=== PATIENT | male | born 1935 | race Caucasian/White ===

== ENCOUNTER 2017-03-27 07:05 | Inpatient (IN) | payer MEDICARE, BC ==
[2017-03-27] MEDS ORDERED: Acetaminophen TAB* 325 MG PO PRN (11:45)
[2017-03-27] MEDS ORDERED: Magnesium Hydroxide LIQ* 30 ML UDC PO PRN (11:47)
[2017-03-27] MEDS ORDERED: Senna TAB PO PRN (11:47)
--- NOTE | 2017-03-27 12:34 | PMRUTEAM ---
PMRU: Goals Current Status: Physical Therapy: Current Status Bed Mobility Assistance Supervision Transfer Moblility Assistance Contact guard Ambulation Assistance Contact guard Ambulation Assistive Devices Rolling Walker Number of Stairs 3 Occupational Therapy: Current Status Upper Body Dressing Contact Guard Assist,Min Assist Lower Body Dressing Min Assist Bathing Contact Guard Assist Toileting Contact Guard Assist Toilet Transfer Contact Guard Assist Eating Independent SOCIAL WORK: lives with significant other Maty in a one story house with 2 MIQUEL Goals: Occupational Therapy: Initial Goals Goals to be Completed in (Days 4-7 ) Upper Body Bathing Routine Independent Lower Body Bathing Routine Modified Independent with Upper Body Dressing Routine Modified Independent with Upper Body Dressing Assistive hemidressing prn Devices Lower Body Dressing Routine Modified Independent with Toilet Hygeine and Clothing Modified Independent with Management Routine Toilet Transfer Routine Modified Independent with Tub Transfer Routine Modified Independent with Functional Transfers for ADL Modified Independent with Grooming Routine Independent Feeding Routine Independent PHYSICAL THERAPY: Independent transfers, independent ambulation 500 feet with a straight cane, independent 1 flight of stairs Care Plan: Care Plan ADL's - Improve/Maintain Start: 03/27/17 11:41 Freq: DAILY Status: Active Target: Activity Type Activity Date Activity User E-Sign Co-Sign Detail Recorded Client Recorded Date Recorded By Document 03/27/17 11:41 [id number] 03/27/17 11:42 [id number] 03/27/17 11:41 PMRU Outcome: ADL's/ADL Transfers Orders/Interventions Occupational Therapy Evaluation & Treatment Communication Tool in Patient Room Device Yes Address Deficits Secondary To: CVA Patient to receive OT 5x/wk for 60-120 Therex min/day Self Care Management Group Therapy Neuromuscular ReEducation UE/LE ADL's with Assist Yes: Imelda ADL Transfers with Assist Yes: Imelda Toileting: Transfers,Clothing Management Yes: Imelda ,Hygeine w/Assist Light Kitchen/Laundry w/Assist No Progression Toward Outcome/Goals Progressing Outcome/Goals Met Pt participated well in OT evaluation, decreased coordination LUE/LLE requiring CGA- Leif for most ADLs, increased time to button shirt. Pt motivated to improve function to return home with supportive girlfriend. Coping/Psych-Improve/Maintain Start: 03/27/17 11:30 Freq: DAILY Status: Active Target: Activity Type Activity Date Activity User E-Sign Co-Sign Detail Recorded Client Recorded Date Recorded By Document 03/27/17 11:31 [id number] 03/27/17 11:43 [id number] 03/27/17 11:31 PMRU Outcome: Coping/Psychosocial Coping Outcome/Goals Verbalization of Acceptance of Rehab Admit Willingness to Participate in Treatment Plan and Basic Needs Psychosocial Outcome/Goals Cooperate/ Participate in Plan Progression Toward Outcome/Goals - Progressing Coping Progression Toward Outcome/Goals - Progressing Psychosocial DVT Prophylaxis- Improve/Maintain Start: 03/27/17 11:30 Freq: DAILY Status: Active Target: Activity Type Activity Date Activity User E-Sign Co-Sign Detail Recorded Client Recorded Date Recorded By Document 03/27/17 11:31 [id number] 03/27/17 11:43 [id number] 03/27/17 11:31 PMRU Outcome: DVT Prophylaxis Outcome/Goals Remains Free of DVT Complies with DVT Prophylaxis /Treatment Demonstrates Knowledge of DVT Prevention/ Treatment TEDS Stockings on Every AM, Off at HS Progression Toward Outcome/Goals Progressing Education-Improve/Maintain Start: 03/27/17 11:30 Freq: DAILY Status: Active Target: Activity Type Activity Date Activity User E-Sign Co-Sign Detail Recorded Client Recorded Date Recorded By Document 03/27/17 11:31 [id number] 03/27/17 11:43 [id number] 03/27/17 11:31 PMRU Outcome: Education Outcome/Goals Encourage Questions Progression Toward Outcome/Goals Progressing /GI-Improve/Maintain Start: 03/27/17 11:30 Freq: DAILY Status: Active Target: Activity Type Activity Date Activity User E-Sign Co-Sign Detail Recorded Client Recorded Date Recorded By Document 03/27/17 11:31 [id number] 03/27/17 11:43 [id number] 03/27/17 11:31 PMRU Outcome: Genitourinary/ Gastrointestinal Genitourinary- Outcome/Goals Remain Free of Hospital- Acquired UTI Gastrointestinal-Outcome/Goals Maintain/ Achieve Bowel Regularity in Accordance with Pt's Baseline Remain Free of Emesis Prevent Constipation Bowel Regularity at Home Laxatives as Ordered Progression Toward Outcome/Goals - Progressing Progression Toward Outcome/Goals - GI Progressing Medication Administration Start: 03/27/17 11:30 Freq: DAILY Status: Active Target: Activity Type Activity Date Activity User E-Sign Co-Sign Detail Recorded Client Recorded Date Recorded By Document 03/27/17 11:31 [id number] 03/27/17 11:43 [id number] 03/27/17 11:31 PMRU Outcome: Medication Administration Assess Patient Knowledge/Teach Med Yes Education for all Meds Outcome/Goals Patient Independent with Medication Administration at Home Demonstrates Understanding Progression Towards Outcome/Goals Progressing Is Patient Going Home on Lovenox? No Neurological- Improve/Maintain Start: 03/27/17 11:30 Freq: DAILY Status: Active Target: Activity Type Activity Date Activity User E-Sign Co-Sign Detail Recorded Client Recorded Date Recorded By Document 03/27/17 11:31 [id number] 03/27/17 11:43 [id number] 03/27/17 11:31 PMRU Outcome: Neurological Weakness/Aphasia Weakness Left Side Outcome/Goals Maintain/ Achieve Baseline Neurological Status Improve Neurological Status Demonstrate Knowledge of Prevention/Tx of Neuro Disorders/ Complication Maintain/ Improve Strength/ROM Progression Toward Outcome/Goals Progressing Pain/Comfort- Improve/Maintain Start: 03/27/17 11:30 Freq: DAILY Status: Active Target: Activity Type Activity Date Activity User E-Sign Co-Sign Detail Recorded Client Recorded Date Recorded By Document 03/27/17 11:31 [id number] 03/27/17 11:43 [id number] 03/27/17 11:31 PMRU Outcome: Pain/Comfort Outcome/Goals Maintain Comfort Level Allowing Patient to Fully Participate in Rehab Progression Toward Outcome/Goals Progressing Safety- Improve/Maintain Start: 03/27/17 11:30 Freq: DAILY Status: Active Target: Activity Type Activity Date Activity User E-Sign Co-Sign Detail Recorded Client Recorded Date Recorded By Document 03/27/17 11:31 [id number] 03/27/17 11:43 [id number] 03/27/17 11:31 PMRU Outcome: Safety Outcome/Goals Remain Free of Injury or Harm Cooperates with Safety Measures for Least Restrictive Environment Prevent Falls/ Injury Progression Toward Outcome/Goals Progressing Medicine Note: Length of Stay: 4 days Anticipated Discharge Destination: Tentative Discharge Date: 03/31/17 Discharged to: Home
[2017-03-27] MEDS: Atorvastatin* 80 MG TAB PO SCH (17:14)
[2017-03-27] MEDS ORDERED: Terazosin CAP* 5 MG PO SCH (18:00)
--- NOTE | 2017-03-27 19:41 | HP ---
ADMISSION HISTORY AND PHYSICAL: DATE OF ADMISSION: 03/27/17 REASON FOR ADMISSION: Stroke with left-sided weakness. HISTORY OF PRESENT ILLNESS: Patricio Ferris is a 81-year-old male with a medical history significant for benign prostatic hypertrophy. 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 The patient on 03/21/17 was watching the 7th game of the [employer] when his television went out. He said he got quite angry because his television was out, but then went down to the local [employer] and watched the [employer] there. He had a few beers while he was watching the [employer]. He returned to his home after the game was over and went to bed. At 4 a.m. on 07/07, he woke up, unable to move his left arm. The patient decided to go back to bed and see if it would get better on its own. The patient was not sure if he injured his arm moving a piano. The patient woke up 4 hours later and his arm was still weak. His significant other convinced him to go to the emergency room for evaluation. He was evaluated in the ER and had a CAT scan of his brain. As he had long passed the window for TPA that was not an option. The CAT scan showed no acute abnormality. He had a CT angiogram that again showed no blockage in the carotids and no evidence for hemodynamically significant carotid stenosis. The patient was admitted for a probable stroke. An MRI of the brain and an MRI of the cervical spine were ordered. He had a consultation with Dr. Watt. Dr. Watt felt in all likelihood that the patient had had a stroke, but to rule out any cervical cord lesion an MRI of the cervical spine was obtained. MRI of the brain showed an area of restricted diffusion in the right precentral gyrus consistent with a subacute non-hemorrhagic infarct. The patient was kept on a full-strength aspirin a day. Lipitor was added to his medication regimen. The patient had an episode of hematuria while on the acute service, so he was not put on anything for DVT prophylaxis. The patient is felt to have physical therapy and occupational therapy needs. He is now being admitted for inpatient rehab so that he might return to independent living. PAST MEDICAL HISTORY: Significant for: 1. Benign prostatic hypertrophy as previously noted. 2. He has a history of osteoarthritis as well. 3. Cataracts. 4. Vitamin B12 deficiency. 5. He has had bilateral inguinal hernia repairs. CURRENT MEDICATIONS: Include: 1. Proscar. 2. He is on Hytrin as well. 3. He takes Lipitor. ALLERGIES: No known drug allergies. SOCIAL HISTORY: He is a nonsmoker, nondrinker. He lives with his significant other in a 2-story house, but he only uses 1 level. There are multiple steps to enter through the front and in the back there is only 1 step. REVIEW OF SYSTEMS: The patient reports no current shortness of breath or chest pain. PHYSICAL EXAMINATION VITAL SIGNS: Temperature is 97.8, blood pressure is 137/69, pulse is 86, and respirations are 16. HEENT: His extraocular movements are intact. Tongue is midline. NECK: Supple with no lymphadenopathy. LUNGS: Lungs sound clear to auscultation bilaterally. HEART: Heart sounds are regular. S1 and S2 are audible. ABDOMEN: Soft and nontender. EXTREMITIES: Peripheral pulses are intact. No edema is noted. He may have had slightly increased tone in his left upper extremity. NEUROLOGIC: The patient is awake, alert. His speech is clear. Muscle strength is about 4/5 in the left upper extremity. Hand belt turner is about 4/5. Left lower extremity is 4+/5, right side is 5/5. FUNCTIONAL EXAM: The patient transfers with contact guard. ASSESSMENT: Cerebrovascular accident with left hemiparesis. PLAN: Integrate him into a comprehensive and therapeutic rehab program with the following goals: 1. Physical Therapy will see the patient. They are going to work on functional transfer training, ambulation training with a walker. 2. Occupational Therapy will see the patient, work on his activities of daily living including toileting and toilet transfers. 3. Consider heparin for DVT prophylaxis. I will investigate if he got subcu heparin before he developed hematuria. We will also use VIRGIL stockings. 4. SSRIs as indicated. 5. Continue Proscar and Hytrin for benign prostatic hypertrophy. 6. Advance directives: The patient is a full code. 7. Family training as appropriate. 8. patient services manager will be closely involved to make sure that any services and equipment that the patient requires are in place prior to discharge. 9. Home with appropriate services. ESTIMATED LENGTH OF STAY: 5 to 7 days. [id number]/[facility] #: [id number] ASHLEY
[2017-03-27] MEDS: Heparin VIAL(*) 5000 UNITS/ML VIAL (FIVE THOUSAND) SUBCUT SCH (20:13)
[2017-03-27] MEDS: Terazosin CAP* 5 MG PO SCH (20:13)
[2017-03-27] MEDS: Docusate CAP* 100 MG PO SCH (21:27)
[2017-03-28 07:48] LABS: Hematocrit 38 % (42-52); Hemoglobin 12.8 g/dl (14.0-18.0); Mean Corpuscular HGB Conc 34 g/dl (31-36); Mean Corpuscular Hemoglobin 32 pg (27-31); Mean Corpuscular Volume 92 fL (80-94); Mean Platelet Volume 9 um3 (7.4-10.4); Red Blood Count 4.06 10^6/ul (4.0-5.4); Red Cell Distribution Width 13 % (10.5-15); White Blood Count 6.9 10^3/ul (3.5-10.8)
[2017-03-28 08:03] LABS: Albumin 3.4 g/dL (3.2-5.2); BUN/Creatinine Ratio 21.3 (8-20); Calcium 8.9 mg/dL (8.6-10.3); EGFR Non-African American 82.5 (>60); Globulin 2.6 g/dL (2-4); Potassium 4.2 mmol/L (3.5-5.0); Total Bilirubin 1.3 mg/dL (0.2-1.0)
[2017-03-28] MEDS: Aspirin EC TAB* 325 MG PO SCH (08:11)
[2017-03-28] MEDS: Docusate CAP* 100 MG PO SCH ×2 (08:11→22:15)
[2017-03-28] MEDS: Finasteride TAB* 5 MG PO SCH (08:11)
[2017-03-28] MEDS: Heparin VIAL(*) 5000 UNITS/ML VIAL (FIVE THOUSAND) SUBCUT SCH ×2 (08:12→20:02)
[2017-03-28] MEDS: Atorvastatin* 80 MG TAB PO SCH (17:02)
[2017-03-28] MEDS: Terazosin CAP* 5 MG PO SCH (20:01)
--- NOTE | 2017-03-28 20:15 | PN ---
Progress Note - Progress Note Date of Service: 03/28/17 Note: Salvador was visited. He is improving rapidly and did well with both therapies today. He would like to leave but knows he wants to continue to improve. I met with Salvador and Jie, his SO, and they agreed that Salvador should go home Sunday. Salvador feels his left arm is not as strong as it was yesterday. Current Medications Acetaminophen (Tylenol Tab*) 650 mg PO Q6H PRN PRN Reason: FEVER/PAIN Last Admin: 03/28/17 08:11 Dose: 650 mg Aspirin (Ecotrin Ec Tab*) 325 mg PO DAILY [facility] Last Admin: 03/28/17 08:11 Dose: 325 mg Atorvastatin Calcium (Lipitor*) 80 mg PO 1700 [facility] Last Admin: 03/28/17 17:02 Dose: 80 mg Docusate Sodium (Colace Cap*) 100 mg PO BID [facility] Last Admin: 03/28/17 08:11 Dose: 100 mg Finasteride (Proscar Tab*) 5 mg PO DAILY [facility] Last Admin: 03/28/17 08:11 Dose: 5 mg Heparin Sodium (Porcine) (Heparin Vial(*)) 5,000 units SUBCUT Q12HR [facility] Last Admin: 03/28/17 20:02 Dose: 5,000 units Magnesium Hydroxide (Milk Of Magnesia Liq*) 30 ml PO Q6H PRN PRN Reason: CONSTIPATION Senna (Senokot Tab*) 2 tab PO BEDTIME PRN PRN Reason: CONSTIPATION Terazosin HCl (Hytrin Cap*) 10 mg PO 1999 [facility] Last Admin: 03/28/17 20:01 Dose: 10 mg Laboratory Results - last 24 hr 03/28/17 03/28/17 07:33 07:33 WBC 6.9 RBC 4.06 Hgb 12.8 L Hct 38 L MCV 92 MCH 32 H MCHC 34 RDW 13 Plt Count 161 MPV 9 Neut % (Auto) 66.2 Lymph % (Auto) 16.9 L [place] % (Auto) 11.8 H Eos % (Auto) 4.1 Baso % (Auto) 1.0 Absolute Neuts (auto) 4.6 Absolute Lymphs (auto) 1.2 Absolute Monos (auto) 0.8 Absolute Eos (auto) 0.3 Absolute Basos (auto) 0.1 Absolute Nucleated RBC 0 Nucleated RBC % 0.1 Sodium 135 Potassium 4.2 Chloride 107 Carbon Dioxide 25 Anion Gap 3 BUN 19 Creatinine 0.89 Est GFR ( Amer) 106.0 Est GFR (Non-Af Amer) 82.5 BUN/Creatinine Ratio 21.3 H Glucose 106 H Calcium 8.9 Total Bilirubin 1.30 H AST 15 ALT 14 Alkaline Phosphatase 103 Total Protein 6.0 L Albumin 3.4 Globulin 2.6 Albumin/Globulin Ratio 1.3 Vital Signs Temp Pulse Resp BP Pulse Ox 99.5 F 82 18 124/70 92 03/28/17 16:31 03/28/17 16:31 03/28/17 16:31 03/28/17 16:31 03/28/17 16:44 EXAM: HEENT: EOMI, no facial asymmetry LUNGS: CTA b/l HEART: Reg rhythm ABDOMEN: Soft NEUROLOGIC: Left hand 4/5, left arm 4-4+/5 ASSESSMENT/PLAN: 1. CVA with left hemiparesis: PT/OT. ASA/Lipitor 2. BPH: Hytrin/Proscar 3. DVT Prophylaxis: Heparin S/Q 4. Advanced Directives: Full code 5. Disposition: Home with Jie 03/30
[2017-03-29] MEDS: Docusate CAP* 100 MG PO SCH ×2 (08:25→21:23)
[2017-03-29] MEDS: Finasteride TAB* 5 MG PO SCH (08:26)
[2017-03-29] MEDS: Aspirin EC TAB* 325 MG PO SCH (08:26)
[2017-03-29] MEDS: Heparin VIAL(*) 5000 UNITS/ML VIAL (FIVE THOUSAND) SUBCUT SCH ×2 (08:27→21:23)
[2017-03-29] MEDS: Atorvastatin* 80 MG TAB PO SCH (17:23)
--- NOTE | 2017-03-29 17:47 | PN ---
Progress Note - Progress Note Date of Service: 03/29/17 Note: Salvador visited. Therapy notes read and reviewed. He is safe for discharge tomorrow. He feels he can manage at home. Otherwise doing okay. Current Medications Acetaminophen (Tylenol Tab*) 650 mg PO Q6H PRN PRN Reason: FEVER/PAIN Last Admin: 03/28/17 08:11 Dose: 650 mg Aspirin (Ecotrin Ec Tab*) 325 mg PO DAILY [facility] Last Admin: 03/29/17 08:26 Dose: 325 mg Atorvastatin Calcium (Lipitor*) 80 mg PO 1700 [facility] Last Admin: 03/29/17 17:23 Dose: 80 mg Docusate Sodium (Colace Cap*) 100 mg PO BID [facility] Last Admin: 03/29/17 08:25 Dose: 100 mg Finasteride (Proscar Tab*) 5 mg PO DAILY [facility] Last Admin: 03/29/17 08:26 Dose: 5 mg Heparin Sodium (Porcine) (Heparin Vial(*)) 5,000 units SUBCUT Q12HR [facility] Last Admin: 03/29/17 08:27 Dose: 5,000 units Magnesium Hydroxide (Milk Of Magntrent Liq*) 30 ml PO Q6H PRN PRN Reason: CONSTIPATION Senna (Senokot Tab*) 2 tab PO BEDTIME PRN PRN Reason: CONSTIPATION Terazosin HCl (Hytrin Cap*) 10 mg PO 1999 [facility] Last Admin: 03/28/17 20:01 Dose: 10 mg Vital Signs Temp Pulse Resp BP Pulse Ox 99.0 F 84 18 134/73 94 03/29/17 15:51 03/29/17 15:51 03/29/17 16:18 03/29/17 15:51 03/29/17 16:18 EXAM: HEENT: EOMI, no facial asymmetry LUNGS: CTA b/l HEART: Reg rhythm ABDOMEN: Soft NEUROLOGIC: Left hand 4/5, left arm 4-4+/5 ASSESSMENT/PLAN: 1. CVA with left hemiparesis: PT/OT. ASA/Lipitor 2. BPH: Hytrin/Proscar 3. DVT Prophylaxis: Heparin S/Q 4. Advanced Directives: Full code 5. Disposition: Home 03/30
[2017-03-29] MEDS: Terazosin CAP* 5 MG PO SCH (21:23)
[2017-03-30 05:36] VITALS: BP 125/56
[2017-03-30] MEDS: Finasteride TAB* 5 MG PO SCH (08:46)
[2017-03-30] MEDS: Docusate CAP* 100 MG PO SCH (08:46)
[2017-03-30] MEDS: Aspirin EC TAB* 325 MG PO SCH (08:46)
[2017-03-30] MEDS: Heparin VIAL(*) 5000 UNITS/ML VIAL (FIVE THOUSAND) SUBCUT SCH (08:47)
--- NOTE | 2017-03-30 09:21 | PN ---
Progress Note - Progress Note Date of Service: 03/30/17 Note: Discharge note Notes reviewed and patient visited with . He wants copies of his labs, especially cholesterol. Feels ready to go home. No new symptoms. Acetaminophen (Tylenol Tab*) 650 mg PO Q6H PRN PRN Reason: FEVER/PAIN Last Admin: 03/28/17 08:11 Dose: 650 mg Aspirin (Ecotrin Ec Tab*) 325 mg PO DAILY [facility] Last Admin: 03/30/17 08:46 Dose: 325 mg Atorvastatin Calcium (Lipitor*) 80 mg PO 1700 [facility] Last Admin: 03/29/17 17:23 Dose: 80 mg Docusate Sodium (Colace Cap*) 100 mg PO BID [facility] Last Admin: 03/30/17 08:46 Dose: 100 mg Finasteride (Proscar Tab*) 5 mg PO DAILY [facility] Last Admin: 03/30/17 08:46 Dose: 5 mg Heparin Sodium (Porcine) (Heparin Vial(*)) 5,000 units SUBCUT Q12HR [facility] Last Admin: 03/30/17 08:47 Dose: 5,000 units Magnesium Hydroxide (Milk Of Magnesia Liq*) 30 ml PO Q6H PRN PRN Reason: CONSTIPATION Senna (Senokot Tab*) 2 tab PO BEDTIME PRN PRN Reason: CONSTIPATION Terazosin HCl (Hytrin Cap*) 10 mg PO 2000 [facility] Last Admin: 03/29/17 21:23 Dose: 10 mg Vital Signs Temp Pulse Resp BP Pulse Ox 99.5 F 71 24 125/56 94 03/30/17 05:26 03/30/17 05:26 03/30/17 05:26 03/30/17 05:26 03/30/17 08:50 EXAM: GEN: no acute distress. alert and appropriate LUNGS: CTA b/l HEART: Reg rhythm ABDOMEN: Soft, non-tender, non-distended. NEUROLOGIC: Motor left hand 4/5, left arm 4+/5, left leg 5/5. Sensation intact x4. EXT: no edema ASSESSMENT/PLAN: 1. CVA with left hemiparesis: I reviewed labs with patient and gave him a copy. ASA/Lipitor. f/u with neurology. 2. BPH: Hytrin/Proscar 3. Advanced Directives: Full code 4. Disposition: Home today
--- NOTE | 2017-03-30 11:44 | DS ---
DISCHARGE SUMMARY: DATE OF ADMISSION: 03/27/17 DATE OF DISCHARGE: 03/30/17 REASON FOR ADMISSION: Stroke with left-sided weakness. HISTORY OF PRESENT ILLNESS: For full details of his acute hospitalization leading up to his admission, please see the note dictated by Dr. Jasso on 12/04. During his time on the [facility], he remained medically stable. He participated well with physical therapy and at the time of discharge is independent with bed mobility, transfers using a rolling walker and ambulating using a rolling walker up to 300 feet. He can also go up and down 5 stairs using one rail independently. He participated well with occupational therapy and has been found to be independent eating. He can sponge bathe independently or used a shower chair. He is independent dressing, although he should be seated to thread pants and to do any lower body dressing such as socks. He is independent toileting. He was seen by Speech Therapy and not found to have any needs for ongoing treatments by their screen. DISCHARGE MEDICATIONS: 1. Atorvastatin 80 mg every day. 2. Finasteride 5 mg every day. 3. Terazosin 10 mg q. p.m. 4. Vitamin B12 injection 1 mL every month. 5. Aspirin 325 mg every day. FOLLOWUP: He is to follow up with Dr. Watt in another month and his primary care provider Dr. Abhijit Shetty also in another month. DISCHARGE CONDITION: Good. DISCHARGE DISPOSITION: Home with family support. DISCHARGE DIAGNOSES: 1. Left hemiplegia secondary to ischemic stroke. 2. Benign prostatic hypertrophy. 3. Vitamin B12 deficiency. [id number]/[facility] #: [id number] MTDD
== END 2017-03-30 10:15 | disposition home or self-care (01) | DRG 57 ==
LOC: PMRU 09:08
PROVIDERS: ADMIT Physical Medicine & Rehabilitation; ATTEND Physical Medicine & Rehabilitation
PROC: F07Z5ZZ Bed Mobility Treatment (ICD-10-PCS; principal; 2017-03-27)
PROC: F07Z9ZZ Gait Training/Functional Ambulation Treatment (ICD-10-PCS; 2017-03-27)
PROC: F07Z8ZZ Transfer Training Treatment (ICD-10-PCS; 2017-03-27)
PROC: F08Z0ZZ Bathing/Showering Techniques Treatment (ICD-10-PCS; 2017-03-27)
PROC: F08Z1ZZ Dressing Techniques Treatment (ICD-10-PCS; 2017-03-27)
PROC: F08Z3ZZ Feeding/Eating Treatment (ICD-10-PCS; 2017-03-27)
DX: I69.354 Hemiplegia and hemiparesis following cerebral infarction affecting left non-dominant side (principal); E53.8 Deficiency of other specified B group vitamins; N40.0 Benign prostatic hyperplasia without lower urinary tract symptoms; Z79.899 Other long term (current) drug therapy
CPT/HCPCS: 36415; 80053; 85025; A9270-GY; J1644

== ENCOUNTER 2017-05-12 13:29 | Inpatient (IN) | payer MEDICARE, BC ==
[2017-05-12] MEDS ORDERED: NS 0.9% 1000 ML* 1,000 ML IV ONE (13:36)
--- OUTSIDE RECORDS SUMMARY | 2017-05-12 13:43 | XMS REPORT ---
:1935 External Reference #:[id number] Author Organization [facility] Address [address] [address] Phone [phone] Care Team Providers Name Role Phone Maurice Bellamy MD Care Team Information Lay Out Helper Unavailable Abhijit Shetty MD Primary Care Physician Unavailable Payers Type Date Identification Numbers Payment Provider Subscriber Medicare Primary Policy Number: [id number] Medicare Patricio Ferris PayID: [id number] [address] [place] [address] [facility] Policy Number: [id number] [employer] Patricio Ferris PayID: [id number] [address] [address] [place] [address] Problems Date Description Provider Status Onset: 02/19/2017 Benign prostatic hypertrophy Abhijit Shetty M.D.,FACP Active without outflow obstruction Onset: 02/19/2017 Pernicious anemia Abhijit Shetty M.D.,FACP Active Family History Date Family Member(s) Problem(s) Comments Father due to Unknown Causes () Mother due to Unknown Causes () Siblings 1 First Sister Unknown Social History Type Date Description Comments Marital Status Lives With Alone 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 3-4 glasses 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 week Smoking Patient has never smoked Recreational Drug Use Denies Drug Use General Hx Text 2 children Allergies, Adverse Reactions, Alerts Date Description Reaction Status Severity Comments 02/19/2017 Flomax active 09/27/2016 NKDA inactive Medications Medication Date Status Form Strength Qnty SIG Indications Ordering Provider Aspirin Ec 03/26 Active Tablets 325mg 30tab take 1 tab by /2016 DR hansel gerber every Ordering day Provider Atorvastatin 03/26 Active Tablets 80mg 1 by mouth Other Calcium /2016 every day Ordering Provider Cyanocobalamin 02/13 Active Solution 1000mcg/M 10uni 1 milliliters L ts intramuscular Crystal Shetty, [id number] Giuseppe,[facility] Terazosin HCL Active Capsules 10mg 1 by mouth Unknown /0000 every day Finasteride Active Tablets 5mg 1 by mouth Unknown /0000 every day Vitamin B-12 02/12 Hx Liquid 1000mcg/1 12uni inject 1000 5ML ts mcg every week Chapis Jaramillo M.D.,[facility] 02/13 Vitamin B12 Hx injection monthly Chapis Jaramillo M.D.,[facility] 02/12 Vitamin B12 Hx Tablets 1000mcg 1 by mouth Unknown /0000 ER every day - 03/28 Medications Administered in Office Medication Date Status Form Strength Qnty SIG Indications Ordering Provider Inj, Administered Injection Tam D. Regadenoson, 017 Giuseppe Pascal 0.1 MG Technetium TC Administered Injection Tam D. 99M 017 Giuseppe Pascal Tetrofosmin, Per Unit Dose Up To 40 Millicuries Immunizations CPT Code Status Date Vaccine Lot # [id number] Given 03/25/2012 Tdap - Tetanus/Diptheria/Acellular Pertussis Vital Signs Date Vital Result Comment 04/25/2017 Height 68 inches 5'8" Weight 166.00 lb Heart Rate 80 /min BP Systolic Sitting 142 mmHg BP Diastolic Sitting 80 mmHg BMI (Body Mass Index) 25.2 kg/m2 02/19/2017 Height 68 inches 5'8" Weight 166.00 lb Heart Rate 70 /min BP Systolic Sitting 148 mmHg BP Diastolic Sitting 60 mmHg Body Temperature 97.6 F O2 % BldC Oximetry 98 % BMI (Body Mass Index) 25.2 kg/m2 Results Description No Information Procedures Date CPT Code Description Status 03/23/2017 11178 ECHO Transthorasic Realtime 2D W Doppler & Color Completed Flow Hosp 09/28/2016 85347 Stress Test Completed 09/28/2016 51559 Myocardial Perfusion Imaging Tomographic (Spect) Completed Multiple Studies Encounters Type Date Location Provider CPT E/M Dx Office Visit 03/23/2017 [facility] Navjot Watt, 30018 I63.9 2:00p M.D. Office Visit 03/22/2017 [facility] Navjot Watt, 76558 G81.04 1:59p M.D. Office Visit 02/19/2017 [facility] - Abhijit Rojas 79291 N40.1 2:00p [place] [place] Shetty M.D.,FACP R06.02 D51.9 Plan of Care Future Appointment(s):10/17/2017 1:00 pm - Abhijit Shetty M.D.,FACP at [facility] - [address]/25/2017 - Navjot Watt M.D.I63.9 Cerebral infarction, unspecifiedNew Therapy:Physical TherapyFollow up:PRNRecommendations: get your cholesterol checked with Dr. Shetty in a couple of months
--- NOTE | 2017-05-12 14:07 | RAD ---
Indication: Neurologic changes. CT of the brain was performed without IV contrast. Comparison is made with previous exam dated 2016. Ventricular structures are midline. No midline shift is noted. The extraction spaces are unremarkable. There is no evidence of intracranial mass or hemorrhage. No other high or low density lesions are identified. Minimal mucosal thickening of the maxillary sinuses is noted. When compared to previous exam of March 22 2017 no significant change is noted. IMPRESSION: No intracranial mass or hemorrhage is noted.
[2017-05-12 14:21] LABS: Hematocrit 42 % (42-52); Hemoglobin 14.1 g/dl (14.0-18.0); Mean Corpuscular HGB Conc 34 g/dl (31-36); Mean Corpuscular Hemoglobin 31 pg (27-31); Mean Corpuscular Volume 93 fL (80-94); Mean Platelet Volume 8 um3 (7.4-10.4); Red Blood Count 4.47 10^6/ul (4.0-5.4); Red Cell Distribution Width 14 % (10.5-15); White Blood Count 5.8 10^3/ul (3.5-10.8)
[2017-05-12 14:37] LABS: Albumin 3.8 g/dL (3.2-5.2); BUN/Creatinine Ratio 17.1 (8-20); Calcium 9.1 mg/dL (8.6-10.3); EGFR African American 77.3 (>60); EGFR Non-African American 60.1 (>60); Globulin 2.7 g/dL (2-4); HDL Cholesterol 36.8 mg/dL; Potassium 4.2 mmol/L (3.5-5.0); Total Protein 6.5 g/dL (6.4-8.9)
[2017-05-12 14:40] LABS: Troponin I 0.01 ng/mL (<0.04)
--- NOTE | 2017-05-12 15:04 | RAD ---
Indication: Neurologic changes. Single frontal view of the chest performed at 1410 hours was reviewed. Comparison is made with previous exam dated March 22, 2017. No mediastinal shift is noted. Heart is of normal size and configuration. Lung buck appear clear. IMPRESSION: NO ACTIVE CARDIOPULMONARY DISEASE IS NOTED.
[2017-05-12] MEDS ORDERED: Iohexol 350* (CONTRAST) 500 ML MDV IV ONE (15:20)
--- NOTE | 2017-05-12 16:42 | RAD ---
Indication: Left-sided weakness, dysarthria. Contrast: Administered 80.2 ml of OMNIPAQUE 350 mg/ml CTA of the neck and head was performed after IV contrast administration. Coronal, sagittal and 3-D reconstructive images were obtained. Atherosclerotic aorta is noted. Origins of the great vessels are grossly unremarkable. Minimal calcific plaque is noted at the origin of the right internal carotid artery. No evidence of aortic dissection or thrombus or stenosis is noted. The left internal carotid artery demonstrates mild to moderate plaque on the left and 50% stenosis is noted. Plaque is noted in the proximal internal carotid artery approximately 40%. No evidence of aortic dissection is noted. The vertebral arteries are otherwise unremarkable. Degenerative changes of the cervical spine are noted. Intracranial circulation demonstrates normal bifurcation of the anterior and middle cerebral artery. No branch occlusion is identified. No aneurysmal dilatation is noted. The basilar artery, posterior cerebral arteries are grossly unremarkable. IMPRESSION: Calcific plaque at the origins of both internal carotid arteries. Additionally there is soft plaque at the proximal left internal carotid artery. The intracranial circulation demonstrates no aneurysmal dilatation. No branch occlusion is identified.
[2017-05-12] MEDS ORDERED: Ondansetron INJ* 2 MG/ML VIAL IV PRN (17:49)
[2017-05-12 20:05] LABS: Urine Bilirubin Negative (Negative); Urine Glucose Negative (Negative); Urine Nitrite Negative (Negative)
[2017-05-12] MEDS: Acetaminophen TAB* 325 MG PO PRN (20:11)
[2017-05-12] MEDS: Terazosin CAP* 5 MG PO SCH (22:00)
[2017-05-12] MEDS: Heparin VIAL(*) 5000 UNITS/ML VIAL (FIVE THOUSAND) SUBCUT SCH (22:00)
[2017-05-13] MEDS: Acetaminophen TAB* 325 MG PO PRN ×2 (02:10→11:33)
--- NOTE | 2017-05-13 04:10 | HP ---
HISTORY AND PHYSICAL: DATE OF ADMISSION: 05/12/17 PRIMARY CARE PROVIDER: Abhijit Shetty MD ATTENDING PROVIDER: Kylie Galarza MD * (DICTATED BY KLAUDIA BECERRA NP) CHIEF COMPLAINT: Left-sided weakness. 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 His friends brought him to the emergency room for further evaluation. The patient was admitted to our institution in early March 2017 for a right precentral gyrus subacute infarct. The patient presented with acute left upper and lower extremity weakness. During that hospitalization, he was started on full dose aspirin as well as high dose statin and subsequently spent 3 days in rehab. After that, he was discharged home and reports that he has been completely back to normal. 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 Today, when he started to develop his weakness and speech difficulties, he was unable to stand up from his feet at [employer] and came to the emergency room for further evaluation. In the emergency room, the patient had a CT of the brain that showed no evidence of any new acute stroke. Communication was then established with tele stroke team who recommended a CTA. The CTA did not show any large vessel occlusion and hospitalists were asked to evaluate this patient for admission. 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 HOME MEDICATIONS: 1. Aspirin 325 mg oral daily. 2. Lipitor 80 mg oral at bedtime. 3. Proscar 5 mg oral daily. 4. Hytrin 10 mg oral daily. ALLERGIES: None. FAMILY HISTORY: Reviewed and noncontributory. SOCIAL HISTORY: The patient denies any tobacco or drug use. He drinks 1 to 2 drinks per week. 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 His number is [phone]. REVIEW OF SYSTEMS: I performed a 14-point review of systems. All the pertinent positives and negatives are mentioned in the history of present illness. The remaining review of systems is negative. PHYSICAL EXAMINATION GENERAL APPEARANCE: The patient was alert, pleasant, appeared to be in no apparent distress. VITAL SIGNS: Temperature 97.4, heart rate 68, respiratory rate 17, blood pressure 163/95, oxygen saturation 95%. HEAD, EYES, EARS, NOSE AND THROAT: Normocephalic/atraumatic. Pupils are equal and reactive to light. Extraocular movements are intact. NECK: Neck was supple. There was no lymphadenopathy noted. RESPIRATORY: There was no accessory muscle use. Lungs were clear to auscultation. CARDIAC: S1, S2 were crisp. There were no murmurs, rubs, or gallops heard. ABDOMEN: Soft, nontender, nondistended. There are bowel sounds present. EXTREMITIES: There was no lower extremity edema. DP and PT Pulses were 2+ and symmetric. MUSCULOSKELETAL: There is no clubbing or cyanosis noted. Exhibited full range of motion. SKIN: There were no rashes or abnormalities seen. NEURO: Cranial nerves II through XII are intact. The patient's speech is intact. The patient's left upper extremity is only slightly weaker than his right. 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 PSYCH: The patient is alert and oriented x3. DIAGNOSTIC STUDIES/LABORATORY DATA: Sodium 138, potassium 4.2, chloride 106, CO2 26, BUN 20, creatinine 1.1, glucose 148. Lactic acid 1.7. Liver function tests within normal limits, alk phos 118. Troponin 0.01. Triglycerides 185, cholesterol 105, LDL 31, HDL 36.8. INR 0.96, PTT 30.3. White blood cell count 5.8, hemoglobin 14.1, hematocrit 42, platelet count 176. 1. Chest x-ray portable shows no active cardiopulmonary disease. 2. CT brain without contrast, no intracranial mass or hemorrhage is noted. 3. He had CTA of the head and neck, calcific plaque at the origins of both internal carotid artery. Additionally, there was soft plaque at the proximal left internal carotid artery. The intracranial circulation demonstrates no aneurysmal dilatation, no branch occlusion is identified. 4. EKG from today shows sinus rhythm with EKG similar to previous. IMPRESSION: This is a 81-year-old male with past medical history significant for subacute cerebrovascular accident, benign prostatic hypertrophy, who presented to the emergency room with left-sided weakness. The patient was placed on observation for transient ischemic attack versus cerebrovascular accident. ASSESSMENT AND PLAN: 1. Transient ischemic attack versus cerebrovascular accident. It is likely the patient had another small TIA. Symptoms have primarily resolved. The patient will be placed on telemetry. We will have a serial neuro checks. The patient will be seen in consultation by Dr. Lani Coker for further testing recommendations. The patient will have an MRI of the brain. The patient had a recent echocardiogram from early March and there does not seem to be the need at this point to repeat echocardiogram. The patient is on full dose aspirin and high dose statin, we will continue. The patient's lipid profile has improved since early March. We will recheck a fasting one in the morning. The patient is also quite hypertensive here in the emergency room for now. We will tolerate systolic of 160s, but if he goes any higher, antihypertensive regimen can be added. MRI of the brain will be ordered for tomorrow. 2. Benign prostatic hypertrophy. Hytrin and Proscar will continue. 3. Hyperlipidemia. Lipitor will continue. 4. DVT prophylaxis: He is at high risk and he will have subcu heparin. 5. Fluid, electrolytes and nutrition: The patient will have a heart-healthy diet. TIME SPENT: Time for this admission was 60 minutes and 35 minutes were spent with the patient discussing medications, past medical history, and events leading up to his arrival in the emergency room. KLAUDIA BECERRA NP [id number]/[facility] #: [id number] ASHLEY
[2017-05-13] MEDS: Heparin VIAL(*) 5000 UNITS/ML VIAL (FIVE THOUSAND) SUBCUT SCH ×3 (06:10→21:12)
[2017-05-13] MEDS: Finasteride TAB* 5 MG PO SCH (09:29)
[2017-05-13] MEDS: Aspirin TAB* 325 MG PO SCH (09:29)
--- NOTE | 2017-05-13 10:27 | ED ---
Gonzalez Walker Stephanie, scribed for Jacob Wilks MD on 05/12/17 at 1350 . Neurological HPI - HPI Summary HPI Summary: Pt is a 81 y/o M presenting to the ED with c/o stroke-like symptoms that occurred at 12:30 today. Symptoms include slurred speech and L arm weakness and numbness. 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 Housekeeper Onset/Duration: Sudden Onset, Resolved Neurological Deficit Location: LUE Pain Intensity: 0 Pain Scale Used: 0-10 Numeric Character: Motor Weakness - L arm, Sensory Loss - L arm numbness Associated Signs and Symptoms: Positive: Weakness - L arm, Impaired Speech - slurred, Numbness - L arm - Additional Pertinent History Primary Care Physician: JAMIL - Allergy/Home Medications Allergies/Adverse Reactions: Allergies Allergy/AdvReac Type Severity Reaction Status Date / Time No Known Allergies Allergy Verified 07/16/13 10:56 PMH/Surg Hx/FS Hx/Imm Hx Endocrine/Hematology History: Reports: Hx Anemia - VIT B 12 Denies: Hx Diabetes Cardiovascular History: Denies: Hx Hypertension, Hx Pacemaker/ICD Respiratory History: Reports: Other Respiratory Problems/Disorders - Patient states he becomes SOB on exertion for the last 2 years. GI History: Denies: Other GI Disorders History: Denies: Hx Renal Disease Musculoskeletal History: Reports: Hx Arthritis - spine Denies: Hx Rheumatoid Arthritis, Hx Osteoporosis, Other Musculoskeletal History Sensory History: Reports: Hx Cataracts - R eye, with removal, Hx Contacts or Glasses, Hx Hearing Aid - at home Opthamlomology History: Reports: Hx Cataracts - R eye, with removal, Hx Contacts or Glasses Neurological History: Denies: Other Neuro Impairments/Disorders Psychiatric History: Reports: Hx Depression - NO MEDS Denies: Hx Panic Disorder - Surgical History Surgery Procedure, Year, and Place: hernia repair X 2. LENS IMPLANT- 2000, DR JANSEN- [facility] [id number] PER OP REPORT- SAFE FOR ALL. CATARACTS Hx Anesthesia Reactions: No Infectious Disease History: Denies: Hx Shingles, Hx Tuberculosis, History Other Infectious Disease, Traveled Outside the [place] in Last 30 Days - Family History Known Family History: Positive: Unknown - Pt denies family history when asked - Social History Alcohol Use: Occasionally Alcohol Amount: 3-4 drinks a week Hx Substance Use: No Substance Use Type: Reports: None Smoking Status (MU): Never Smoked Tobacco Review of Systems Negative: Fever, Chills Negative: Erythema Negative: Sore Throat Negative: Chest Pain Negative: Shortness Of Breath, Cough Negative: Abdominal Pain, Vomiting, Nausea Negative: dysuria, hematuria Negative: Myalgia, Edema Positive: Other - Negative: Dizziness. Negative: Rash Positive: Weakness - L arm, Numbness - L arm, Slurred Speech All Other Systems Reviewed And Are Negative: Yes Physical Exam - Summary Physical Exam Summary: Constitutional: Well-developed, Well-nourished, Alert. (-) Distressed Skin: Warm, Dry HENT: Normocephalic; Atraumatic, L dentures are missing. Eyes: Conjunctiva normal Neck: Musculoskeletal ROM normal neck. (-) JVD, (-) Stridor, (-) Tracheal deviation Cardio: Rhythm regular, rate normal, Heart sounds normal; Intact distal pulses; The pedal pulses are 2+ and symmetric. Radial pulses are 2+ and symmetric. (-) Murmur Pulmonary/Chest wall: Effort normal. (-) Respiratory distress, (-) Wheezes, (-) Rales Abd: Soft. (-) Tenderness, (-) Distension, (-) Guarding, (-) Rebound Musculoskeletal: (-) Edema Lymph: (-) Cervical adenopathy Neuro: Alert, Oriented x3, Strength normal, Cranial nerves II-XII are grossly intact. (-) Dysmetria, (-) Nystagmus, (-) Ataxia by finger to nose testing, L 4th and 5th fingers are chronically pruritic. L pronator drift. Gait is unsteady. Psych: Mood and affect Normal Triage Information Reviewed: Yes Vital Signs On Initial Exam: Initial Vitals Temp Pulse Resp BP Pulse Ox 97.4 F 93 17 161/118 96 05/12/17 13:30 05/12/17 13:30 05/12/17 13:30 05/12/17 13:30 05/12/17 13:30 Vital Signs Reviewed: Yes Diagnostics - Vital Signs Vital Signs Temp Pulse Resp BP Pulse Ox 05/12/17 13:30 97.4 F 93 17 161/118 96 - Laboratory Lab Results: Lab Results 05/12/17 05/12/17 05/12/17 Range/Units 13:40 13:40 13:40 WBC 5.8 (3.5-10.8) 10^3/ul RBC 4.47 (4.0-5.4) 10^6/ul Hgb 14.1 (14.0-18.0) g/dl Hct 42 (42-52) % MCV 93 (80-94) fL MCH 31 (27-31) pg MCHC 34 (31-36) g/dl RDW 14 (10.5-15) % Plt Count 176 (150-450) 10^3/ul MPV 8 (7.4-10.4) um3 Neut % (Auto) 41.5 (38-83) % Lymph % (Auto) 27.5 (25-47) % Cooke % (Auto) 10.4 H (1-9) % Eos % (Auto) 19.7 H (0-6) % Baso % (Auto) 0.9 (0-2) % Absolute Neuts (auto) 2.4 (1.5-7.7) 10^3/ul Absolute Lymphs (auto) 1.6 (1.0-4.8) 10^3/ul Absolute Monos (auto) 0.6 (0-0.8) 10^3/ul Absolute Eos (auto) 1.1 H (0-0.6) 10^3/ul Absolute Basos (auto) 0.1 (0-0.2) 10^3/ul Absolute Nucleated RBC 0 10^3/ul Nucleated RBC % 0 INR (Anticoag Therapy) 0.96 (0.77-1.02) APTT 30.3 (26.0-36.3) seconds Sodium 138 (133-145) mmol/L Potassium 4.2 (3.5-5.0) mmol/L Chloride 106 (101-111) mmol/L Carbon Dioxide 26 (22-32) mmol/L Anion Gap 6 (2-11) mmol/L BUN 20 (6-24) mg/dL Creatinine 1.17 (0.67-1.17) mg/dL Est GFR ( Amer) 77.3 (>60) Est GFR (Non-Af Amer) 60.1 (>60) BUN/Creatinine Ratio 17.1 (8-20) Glucose 148 H (70-100) mg/dL Lactic Acid (0.5-2.0) mmol/L Calcium 9.1 (8.6-10.3) mg/dL Total Bilirubin 1.00 (0.2-1.0) mg/dL AST 18 (13-39) U/L ALT 16 (7-52) U/L Alkaline Phosphatase 118 H (34-104) U/L Troponin I 0.01 (<0.04) ng/mL Total Protein 6.5 (6.4-8.9) g/dL Albumin 3.8 (3.2-5.2) g/dL Globulin 2.7 (2-4) g/dL Albumin/Globulin Ratio 1.4 (1-3) Triglycerides 185 mg/dL Cholesterol 105 mg/dL LDL Cholesterol 31 mg/dL HDL Cholesterol 36.8 mg/dL Blood Type Antibody Screen 05/12/17 05/12/17 Range/Units 13:40 13:40 WBC (3.5-10.8) 10^3/ul RBC (4.0-5.4) 10^6/ul Hgb (14.0-18.0) g/dl Hct (42-52) % MCV (80-94) fL MCH (27-31) pg MCHC (31-36) g/dl RDW (10.5-15) % Plt Count (150-450) 10^3/ul MPV (7.4-10.4) um3 Neut % (Auto) (38-83) % Lymph % (Auto) (25-47) % Cooke % (Auto) (1-9) % Eos % (Auto) (0-6) % Baso % (Auto) (0-2) % Absolute Neuts (auto) (1.5-7.7) 10^3/ul Absolute Lymphs (auto) (1.0-4.8) 10^3/ul Absolute Monos (auto) (0-0.8) 10^3/ul Absolute Eos (auto) (0-0.6) 10^3/ul Absolute Basos (auto) (0-0.2) 10^3/ul Absolute Nucleated RBC 10^3/ul Nucleated RBC % INR (Anticoag Therapy) (0.77-1.02) APTT (26.0-36.3) seconds Sodium (133-145) mmol/L Potassium (3.5-5.0) mmol/L Chloride (101-111) mmol/L Carbon Dioxide (22-32) mmol/L Anion Gap (2-11) mmol/L BUN (6-24) mg/dL Creatinine (0.67-1.17) mg/dL Est GFR ( Amer) (>60) Est GFR (Non-Af Amer) (>60) BUN/Creatinine Ratio (8-20) Glucose (70-100) mg/dL Lactic Acid 1.7 (0.5-2.0) mmol/L Calcium (8.6-10.3) mg/dL Total Bilirubin (0.2-1.0) mg/dL AST (13-39) U/L ALT (7-52) U/L Alkaline Phosphatase (34-104) U/L Troponin I (<0.04) ng/mL Total Protein (6.4-8.9) g/dL Albumin (3.2-5.2) g/dL Globulin (2-4) g/dL Albumin/Globulin Ratio (1-3) Triglycerides mg/dL Cholesterol mg/dL LDL Cholesterol mg/dL HDL Cholesterol mg/dL Blood Type O Positive Antibody Screen Negative Result Diagrams: 05/12/17 13:40 05/12/17 13:40 Lab Statement: Any lab studies that have been ordered have been reviewed, and results considered in the medical decision making process. - Radiology CXR Xray Interpretation: No Acute Changes Radiology Interpretation Completed By: Radiologist - NO ACTIVE CARDIOPULMONARY DISEASE IS NOTED. - CT Brain CT Interpretation: No Acute Changes CT Interpretation Completed By: Radiologist - No intracranial mass or hemorrhage is noted. - EKG 13:57 EKG Rhythm: Sinus Rhythm EKG Interpretation: 74 BPM. JE no stemi. NIH Scale - NIH Scale Level of Consciousness: Alert/Keenly Responsive Ask Patient the Month and His/Her Age: Both Correct Ask Pt to Open/Close Eyes and Supervisor Car Installations/Release Non-Paretic Hand: Both Correctly Best Gaze (Only Horizontal Eye Movement): Normal Visual Field Testing: No Visual Loss Facial Paresis-Pt to Smile & Close Eyes or Grimace Symmetry: Normal/Symmetrical Motor Function - Right Arm: No Drift-Holds 10 Seconds Motor Function - Left Arm: Drifts LT 10 seconds - possibly chronic Motor Function - Right Leg: No Drift-Holds 10 Seconds Motor Function - Left Leg: No Drift-Holds 10 Seconds Limb Ataxia-Must be out of Proportion to Weakness Present: Absent Sensory (Use Pinprick to Test Arms/Legs/Trunk/Face): Normal Best Language (Describe Picture, Name Items): No Aphasia Dysarthria (Read Several Words): Slurs Some Words Extinction and Inattention: No Abnormality Total Score: 2 Re-Evaluation - Re-Evaluation First Eval Re-Evaluation Time: 15:16 Change: Unchanged - Pt believes his neural deficit has not improved. Upon observation, pt reports that his gait is worse than baseline. Course/Dx - Course Course Of Treatment: ED physician discussed pt care with Dr. Delgado and both agree to no acute blood pressure treatment. Pt will be defered to in-house neurology team. Admit for further workup of CVA vs TIA. - Diagnoses Provider Diagnoses: CVA (cerebral vascular accident) - Physician Notifications Discussed Care Of Patient With: Dr. Delgado - Pt not a TPA candidate due to stroke history in past 90 days. He recommended to complete a CT A head and neck. Agreed to delay telestroke consultation until after CTA. Time Discussed With Above Provider: 15:38 Discharge - Discharge Plan Condition: Fair Disposition: ADMITTED TO [facility] documentation as recorded by the [employer] banks Stephanie accurately reflects the service I personally performed and the decisions made by , Jacob Wilks MD.
[2017-05-13] MEDS: Clopidogrel TAB* 75 MG PO SCH (14:39)
--- NOTE | 2017-05-13 16:17 | PN ---
Subjective Date of Service: 05/13/17 Interval History: Patient seen and examined at bedside. Patient reports some difficulty with left fine motor skills but otherwise strength back to baseline. Denies CP, SOB. Amublated with PT wihtout difficulty. Family History: Unchanged from Admission Social History: Unchanged from Admission Past Medical History: Unchanged from Admission Objective Active Medications: Acetaminophen (Tylenol Tab*) 650 mg PO Q4H PRN Aspirin (Aspirin Tab*) 325 mg PO DAILY VAISHALI Clopidogrel Bisulfate (Plavix Tab*) 75 mg PO DAILY VAISHALI Finasteride (Proscar Tab*) 5 mg PO DAILY VAISHALI Heparin Sodium (Porcine) (Heparin Vial(*)) 5,000 units SUBCUT Q8HR VAISHALI Ondansetron HCl (Zofran Inj*) 4 mg IV Q6H PRN Rosuvastatin Calcium (Crestor (Nf)) 40 mg PO 1700 VAISHALI Terazosin HCl (Hytrin Cap*) 10 mg PO QPM VAISHALI Vital Signs Temp Pulse Resp BP Pulse Ox 98.4 F 75 16 140/65 95 05/13/17 11:19 05/13/17 11:19 05/13/17 11:19 05/13/17 11:19 05/13/17 11:19 Oxygen Devices in Use Now: None Appearance: sitting up in bed, NAD Eyes: No Scleral Icterus, PERRLA Ears/Nose/Mouth/Throat: NL Teeth, Lips, Gums Neck: NL Appearance and Movements; NL JVP Respiratory: Symmetrical Chest Expansion and Respiratory Effort, Clear to Auscultation Cardiovascular: NL Sounds; No Murmurs; No JVD, RRR, No Edema Abdominal: NL Sounds; No Tenderness; No Distention Extremities: No Edema Skin: No Rash or Ulcers Neurological: Alert and Oriented x 3, NL Muscle Strength and Tone Lines/Tubes/Other Access: Clean, Dry and Intact Peripheral IV Nutrition: Taking PO's Result Diagrams: 05/12/17 13:40 05/12/17 13:40 Additional Lab and Data: . Assess/Plan/Problems-Billing Pt is a 81 y/o M w hx of HLD, BPH, recent CVA 03/2017 who presented to the ED on 05/12 with left upper and lower extremity weakness similar to previous CVA. - Patient Problems (1) CVA (cerebral vascular accident) Comment: TIA vs CVA. Appreciate neurology consultation. MRI planned for Sunday. Given similar distribution as prior suspect intrcranial stenosis. Plavix added to regimen (only ASA) and lipitor changed to Crestor 40mg. No need for repeat echocardiogram. Continue telemetry. Change neuro checks to q4h. (2) HLD (hyperlipidemia) Comment: Lipids from ER improved to 100 but still drinking egg nog at home. Continue high dose Crestor. Repeat fasting lipid profile tomorrow AM. (3) BPH (benign prostatic hyperplasia) Comment: Continue finasteride and terazosin. (4) DVT prophylaxis Comment: SQ Heparin (5) Full code status Status and Disposition: Change to Inpatient. He needs MRI on Sunday.
[2017-05-13] MEDS ORDERED: Atorvastatin* 80 MG TAB PO SCH (17:00)
[2017-05-13] MEDS: Terazosin CAP* 5 MG PO SCH (17:54)
[2017-05-13] MEDS: CMC: Rosuvastatin (NF) 20 MG TAB PO SCH (17:57)
--- NOTE | 2017-05-13 21:00 | CONS ---
CC: Dr. Abhijit Shetty; Dr. Navjot Watt CONSULTATION REPORT: DATE OF CONSULT: 05/13/17 HISTORY OF PRESENT ILLNESS: Mr. Patricio Ferris is a 81-year-old right-handed gentleman with a history of recent stroke for which he was admitted to [facility] in March 2017. He was seen by Dr. Watt 03/22/17 and was diagnosed with a right prefrontal gyrus stroke. MRI showed subacute on chronic changes. He had a CTA of the brain and neck, which showed no significant stenosis albeit there was atherosclerotic disease and a transthoracic echocardiogram, which was good quality with no embolic source, however, no bubble study was noted. He was discharged on aspirin and atorvastatin on , went to the [facility] where he was discharged on 03/30/17. He has been seen by Dr. 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 He has helped with 7 pianos recently without difficulty. He has a cane to walk but he has not had to use it more recently. The day of admission yesterday, he had been at [facility] and he all of a sudden felt like something was wrong in the brain. He felt that his thinking changed and his speech was slower. He had worsening weakness of his left arm and leg and he was brought to hospital for evaluation. Tele stroke consults deemed that he was not a candidate for TPA given his recent stroke and he was admitted to hospital. PAST MEDICAL HISTORY: Mr. Ferris's past medical history includes benign prostatic hypertrophy, B12 deficiency, hyperlipidemia, and ischemic stroke in March 2017. MEDICATIONS ON ADMISSION: Included: 1. B12 injections monthly. 2. Atorvastatin 80 mg p.o. every day. 3. Aspirin 325 mg p.o. every day. 4. Hytrin 10 mg p.o. every day. 5. Finasteride 5 mg p.o. every day. ALLERGIES: He has no known drug allergies. FAMILY HISTORY: Noncontributory. SOCIAL HISTORY: Mr. Ferris does not smoke. He drinks alcohol on occasion. He is very active, doing things for other people as well as continues to work, moving pianos. REVIEW OF SYSTEMS: He denies any change in vision, change in hearing, weight loss, drenching night sweats, high fevers for unknown reason. He denies any chest pain, chest pressure, palpitations, shortness of breath, new numbness or weakness of arm and legs other than what was described in the HPI. There has been some cramping of his left calf, which got better with walking today. He denies any change in bowel or bladder habits. Psychiatric history: No recent rashes. PHYSICAL EXAM: On examination, his most recent temperature was 98.4, heart rate 74, respiratory rate 16, blood pressure 151/72, saturation 95%. He had a regular cardiac rhythm. Normal S1, S2. His lungs were clear to auscultation. There was no carotid bruit. He was awake, alert, articulate. Had normal language and function. Adequate fund of knowledge. He had full extraocular movements with no nystagmus. Full buck to confrontation. His right pupil was small. His left had previous surgical changes. He tells me he had a nail in his eye in the past. I could not visualize his fundi. Facial expression, sensation, hearing were equal. Pallor was upgoing. Tongue was midline. Sternocleidomastoid and trapezius were 5/5 in strength. There was a left pronator drift. He gave good strength in his right upper and lower extremities. In his left upper extremity, there was weakness in the deltoid at 4+/5, in the ulnar intrinsic hand muscles at 4-/5. In the left lower extremity , he had weakness in flexion 4+/5 but performed well in foot dorsiflexion, EHL. There was slight give in knee flexion and extension 5-/5. He denied any symmetries to pinprick, cold, and light touch. He could not feel vibration at the toes, reduced at the ankles. His reflexes were 2+ and symmetric in the upper extremities. Hard to obtain in the lower extremities. His toes were flexor response bilaterally. He walked and carried a cane, and he has slight increase in stance with favoring of the left leg. DIAGNOSTIC STUDIES/LAB DATA: Data includes recent CTA performed on this admission, which showed calcific plaque at the origin of bilateral internal carotid artery with no significant stenosis. Please see report for details. A CT of the brain performed on this admission, which showed no new lesions ( reviewed directly) when compared to previous. Data from previous visits including Dr. Watt's consultation, CTA of the brain and neck, MRI of the brain from March 2017, which was reviewed directly. Echocardiogram from previous admission, which showed no embolic source. IMPRESSION: Mr. Ferris is a 81-year-old right hand gentleman with history of right prefrontal gyrus stroke, which was noted at that time to be subacute on chronic on MRI in March 2017, now admitted after worsening of left arm and leg weakness as well as change in thinking and speech. He is better today, however, he is not back to his clinical state before the new weakness that occurred in [place] the day before admission. Based on history, this most likely is a repeat stroke. He needs MRI of the brain to clarify. Symptoms in the same distribution raised question of intracranial stenosis, and therefore I have suggested aggressive medical management, adding Plavix to his aspirin for 3 months and changing atorvastatin to rosuvastatin 40 mg a day. Cardioembolic source is still possible etiology. While he is in hospital, he will be monitored on telemetry. 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 If the bubble study is positive, we want to look for DVT elsewhere. TIME SPENT: Over 90 minutes was spent in direct patient care. All questions were answered. Communication was made with hospitalist team. [id number]/[facility] #: [id number] ASHLEY
[2017-05-14] MEDS: Acetaminophen TAB* 325 MG PO PRN (00:13)
[2017-05-14] MEDS: Heparin VIAL(*) 5000 UNITS/ML VIAL (FIVE THOUSAND) SUBCUT SCH ×3 (05:11→21:40)
[2017-05-14 05:40] LABS: HDL Cholesterol 35.5 mg/dL
[2017-05-14] MEDS: Aspirin TAB* 325 MG PO SCH (09:08)
[2017-05-14] MEDS: Finasteride TAB* 5 MG PO SCH (09:08)
[2017-05-14] MEDS: Clopidogrel TAB* 75 MG PO SCH (09:08)
[2017-05-14] MEDS ORDERED: LORazepam INJ* 2 MG/ML 1 ML VIAL IV PUSH PRN (11:28)
--- NOTE | 2017-05-14 16:48 | PN ---
Subjective Date of Service: 05/14/17 Interval History: Patient has no complaints overnight. Numerous questions asked and answered about cerebrovascular disease. Patient states he has some residual word finding difficulties, but none are evident. Patient denies CP, SOB, Dizziness, Weakness , Abdominal pain, Diarrhea, constipation, N/V, F/C, dysuria, PASTOR, changes in vision, or other pain. Family History: Unchanged from Admission Social History: Unchanged from Admission Past Medical History: Unchanged from Admission Objective Active Medications: Acetaminophen (Tylenol Tab*) 650 mg PO Q4H PRN PRN Reason: PAIN Last Admin: 05/14/17 00:13 Dose: 650 mg Aspirin (Aspirin Tab*) 325 mg PO DAILY [facility] Last Admin: 05/14/17 09:08 Dose: 325 mg Clopidogrel Bisulfate (Plavix Tab*) 75 mg PO DAILY COUNT [facility]CLUDES THE [facility] Last Admin: 05/14/17 09:08 Dose: 75 mg Finasteride (Proscar Tab*) 5 mg PO DAILY [facility]CLUD[facility] Last Admin: 05/14/17 09:08 Dose: 5 mg Heparin Sodium (Porcine) (Heparin Vial(*)) 5,000 units SUBCUT Q8HR COUNT INCLUDES THE [facility] Last Admin: 05/14/17 14:44 Dose: 5,000 units Lorazepam (Ativan Inj*) 0.5 mg IV PUSH ONCE PRN PRN Reason: ANXIETY Stop: 05/15/17 23:59 Ondansetron HCl (Zofran Inj*) 4 mg IV Q6H PRN PRN Reason: NAUSEA Rosuvastatin Calcium (Crestor (Nf)) 40 mg PO 1700 COUNT INCLUDES THE [facility] Last Admin: 05/13/17 17:57 Dose: 40 mg Terazosin HCl (Hytrin Cap*) 10 mg PO QPM COUNT INCLUDES THE [facility] Last Admin: 05/13/17 17:54 Dose: 10 mg Oxygen Devices in Use Now: None Appearance: Patient is a 81yo male who appears stated age and is sitting in the bed in [facility]. Eyes: No Scleral Icterus, - - Left pupil reactive, but obliquely angled and enlarged. Ears/Nose/Mouth/Throat: NL Teeth, Lips, Gums, Clear Oropharnyx, Mucous Membranes Moist Neck: NL Appearance and Movements; NL JVP, Trachea Midline Respiratory: Symmetrical Chest Expansion and Respiratory Effort, Clear to Auscultation Cardiovascular: NL Sounds; No Murmurs; No JVD, RRR, No Edema Abdominal: NL Sounds; No Tenderness; No Distention, No Hepatosplenomegaly Lymphatic: No Cervical Adenopathy Extremities: No Edema, No Clubbing, Cyanosis Skin: No Rash or Ulcers, No Nodules or Sclerosis Neurological: Alert and Oriented x 3, NL Sensation, NL Muscle Strength and Tone , - - Slight Right Facial Droop, Unable to keep left eye closed to force. CN II- XII otherwise intact. Strength 5/5 throughout except for weakness on fourth and fifth digits on left hand. Sensation to light touch intact throughout. Reflexes 2+ throughout, babinski's downgoing B/L. Result Diagrams: 05/12/17 13:40 05/12/17 13:40 Additional Lab and Data: . Assess/Plan/Problems-Billing Pt is a 81 y/o M w hx of HLD, BPH, recent CVA 03/2017 who presented to the ED on 05/12 with word finding difficulty and weakness similar to previous CVA. Patient is returned almost to baseline. - Patient Problems (1) CVA (cerebral vascular accident) Current Visit: No Status: Acute Code(s): I63.9 - CEREBRAL INFARCTION, UNSPECIFIED SNOMED Code(s): 702162250 Comment: TIA vs CVA. Appreciate neurology consultation. MRI planned for Sunday. Given similar distribution as prior suspect intrcranial stenosis. Plavix added to regimen (only ASA) and lipitor changed to Crestor 40mg. Repeat Echo due to lack of bubble study on previous TTE. No evidence of Afib on telemetry. HbgA1c at 5.6 2 months ago. (2) HLD (hyperlipidemia) Current Visit: Yes Status: Acute Code(s): E78.5 - HYPERLIPIDEMIA, UNSPECIFIED SNOMED Code(s): 48789558 Comment: LDL at 43. Continue High dose Crestor due to repeated treatment failure. (3) BPH (benign prostatic hyperplasia) Current Visit: No Status: Acute Code(s): N40.0 - BENIGN PROSTATIC HYPERPLASIA WITHOUT LOWER URINRY TRACT SYMP SNOMED Code(s): 156389366 Comment: Continue finasteride and terazosin. (4) DVT prophylaxis Current Visit: No Status: Acute Code(s): KNB0676 - SNOMED Code(s): 229838846 Comment: SQ Heparin (5) Full code status Current Visit: No Status: Acute Code(s): Z78.9 - OTHER SPECIFIED HEALTH STATUS SNOMED Code(s): 731222116 Status and Disposition: Change to Inpatient. He needs MRI on Sunday.
[2017-05-14] MEDS: CMC: Rosuvastatin (NF) 20 MG TAB PO SCH (17:32)
[2017-05-14] MEDS: Terazosin CAP* 5 MG PO SCH (17:32)
--- NOTE | 2017-05-14 21:21 | PN ---
FOLLOWUP NOTE: DATE OF SERVICE: 05/14/17 DATE OF DICTATION: 05/14/17 HISTORY OF PRESENT ILLNESS: There has been no new symptoms overnight. He denies any palpitations. He feels about the same this morning. He is still weaker than he was before at [facility]. In particular, he has difficulty with coordination in his left upper extremity. PHYSICAL EXAMINATION: On examination, most recent vitals included temperature of 98.2, heart rate 80 and regular, respiratory rate 18, saturation 97%, blood pressure 153/77. Of note, there has been variation in blood pressure yesterday , he got as low as 117/62. There has been higher hypertensive readings during the admission. He had a regular cardiac rhythm. His lungs were clear to auscultation. No carotid bruit. He had full extraocular movements. Full buck to confrontation. His facial expression was symmetric and there was no dysarthria. There was a left pronator drift with weakness in the left deltoid at 4+/5. Biceps and triceps were strong. Hand was 3 to 4-/5, left hip flexion was 4+/5. He had dysmetria in the left upper and lower extremity. He denied any sensory changes between the limbs. He was able to walk without a cane, favoring his left leg. DIAGNOSTIC STUDIES/LAB DATA: Laboratory tests today showed a total cholesterol of 93, triglycerides 74, LDL 43, and HDL 35.5. Mr. Ferris's MAR was reviewed. He is now on aspirin 325 mg p.o. every day, clopidogrel 75 mg p.o. every day, as well as rosuvastatin 40 mg p.o. q.p.m. See MAR for further details. IMPRESSION: Mr. Ferris is a 81-year-old active gentleman who has had symptoms consistent with [id number] stroke with previous admission in March 2017. We await MRI of the brain for further characterization along with echocardiogram with bubble study. He is being monitored on telemetry. Differential diagnoses were stroke includes intracranial stenosis. He is now on aspirin and Plavix as well as rosuvastatin. His lipids appeared to be under control by most recent laboratory testing. In his original stroke, his LDL was 109 and total cholesterol was 173. He has a habit of drinking quite a bit of eggnog throughout the holiday season from to May and education was given regarding diet and stroke. He also had read information provided to him. In looking at his blood pressure, he has had similar hypertensive readings. At this point, we should maintain permissive hypertension; however, he may need further blood pressure control as an outpatient. Differential diagnosis does include cardioembolic source and he is on telemetry. MRI will give further information. 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 A bubble study has been ordered on echocardiogram. TIME SPENT: Over 30 minutes was spent in direct [id number] patient's care. Over 50% of the time time was spent in education and counseling regarding diagnosis, differential diagnosis of etiology, treatment and prognosis. All questions were answered. Dr. Perry will be assuming neurologic care tomorrow. [id number]/[facility] #: [id number] ASHLEY
--- NOTE | 2017-05-15 04:21 | CONS ---
CONSULTATION REPORT:* ADDENDUM: Of note, during this admission, CBC was performed with normal white count, hemoglobin, hematocrit, and platelets. He did have increased eosinophil percentage with absolute eosinophils at 1.1. His metabolic panel showed glucose elevated at 148, alk phos was elevated at 118, and otherwise complete metabolic panel was normal. His total cholesterol was 105, triglycerides 185, LDL 31, HDL 36.8. Urinalysis was negative. Eosinophilia is first time finding, in previous admissions was not elevated. I want to note this in the consultation to make sure this is followed up by primary care as an outpatient. [id number]/[facility] #: [id number] MTDD
[2017-05-15] MEDS: Heparin VIAL(*) 5000 UNITS/ML VIAL (FIVE THOUSAND) SUBCUT SCH ×3 (05:55→22:06)
[2017-05-15] MEDS: Clopidogrel TAB* 75 MG PO SCH (09:50)
[2017-05-15] MEDS: Aspirin TAB* 325 MG PO SCH (09:50)
[2017-05-15] MEDS: Finasteride TAB* 5 MG PO SCH (09:50)
--- NOTE | 2017-05-15 11:37 | RAD ---
Indication: Transient ischemic attack with left-sided weakness. Image sequences: Sagittal and axial T1, axial T2, FLAIR, diffusion and susceptibility weighted images of the brain were obtained. Ventricular structures are midline. No midline shift is noted. The extra-axial spaces are unremarkable. Multiple tiny areas of restriction of diffusion is noted in the right frontal, right parietal lobe in the subcortical and cortical distribution. The possibility of involvement phenomenon should BE considered. The left cerebral hemisphere demonstrates no restriction of diffusion. The brainstem and posterior fossa are unremarkable. Mucosal thickening of the maxillary sinuses, ethmoid air cells and frontal sinuses are noted. Susceptibility weighted images demonstrates no evidence of susceptibility weighted artifact to suggest hemorrhage. IMPRESSION: Multiple punctate areas of restriction of diffusion scattered throughout the right cerebral hemisphere in the subcortical and cortical areas of the right frontal, parietal and temporal lobes. This is consistent with embolic phenomenon. Extensive mucosal thickening of the paranasal sinuses.
--- NOTE | 2017-05-15 15:05 | ECHO ---
Patient: JONES MURPHY [facility] Rec#: [id number] : 1935 Date: 05/15/2017 Age: 81y Height: 172.72 cm / 68.0 in Weight: 75.3 kg / 166.0 lbs Sex: M BSA: 1.89 Room#: 441 Admit Date#: 05/13/2017 Type: Inpatient Referring: Lani Coker MD Reading: Lebron Zhang MD Specialty Transformer Assembler: Lani Aguilera RDCS,RDMS CC: Abhijit Shetty MD Transthoracic Echocardiogram Indication: CVA BP: 122/68 HR: 91 Rhythm: NSR Findings History: CVA, HLD Technical Comments: The study quality is fair. Left Ventricle: The left ventricular chamber size is normal. Moderate concentric left ventricular hypertrophy is observed. The estimated ejection fraction is 60-65%. There is an E to A reversal in the mitral valve flow pattern suggestive of diastolic dysfunction. Left Atrium: The left atrial chamber size is normal. Right Ventricle: The right ventricle wall thickness is mildly increased.RV free wall : 7 mm. The right ventricular cavity size is normal. The right ventricular global systolic function is low normal. Right Atrium: The right atrial cavity size is normal. The bubble study is negative. Aortic Valve: The aortic valve is trileaflet. Systolic excursion of the aortic valve is normal. There is no evidence of aortic regurgitation. There is no evidence of aortic stenosis. Mitral Valve: The mitral valve leaflets appear normal. There is no evidence of mitral regurgitation. There is no evidence of mitral stenosis. Tricuspid Valve: The tricuspid valve leaflets are normal. There is trace tricuspid regurgitation. No pulmonary hypertension is noted. Pulmonic Valve: The pulmonic valve appears normal. There is mild pulmonic regurgitation. Pericardium: There is no significant pericardial effusion. Aorta: The ascending aorta is not well visualized. There is no dilatation of the aortic arch. The aortic root is normal in size. Pulmonary Artery: The main pulmonary artery appears normal. Venous: The inferior vena cava appears normal in size. There is a greater than 50% respiratory change in the inferior vena cava dimension. Conclusions Moderate concentric left ventricular hypertrophy is observed. The estimated ejection fraction is 60-65%. There is an E to A reversal in the mitral valve flow pattern suggestive of diastolic dysfunction. The right ventricle wall thickness is mildly increased.RV free wall : 7 mm. The right ventricular global systolic function is low normal. The bubble study is negative. There is mild pulmonic regurgitation. Similar to the study of . If there is a high index of suspicion for a cardiac source of embolism, consider further evaluation with a transesopageal echo. Measurements Name Value Normal Range RVIDd (AP) 2D 1.9 cm (0.9 - 2.6) RVDdMajor (2D) 1.5 cm (2.2 - 4.4) RAd ISD 4CH 4.6 cm (3.4 - 4.9) RA (A4C)W 2.7 cm (2.9 - 4.6) IVSd (2D) 1.4 cm (0.6 - 1) LVPWd (2D) 1.3 cm (0.6 - 1) LVIDd (2D) 3.7 cm (3.6 - 5.4) LVIDs (2D) 3.1 cm - LV FS (2D) 16 % (25 - 45) Aortic Annulus 2.1 cm (1.4 - 2.6) Ao root diameter (2D) 3.4 cm (2.1 - 3.5) Aortic arch 2.6 cm (1.8 - 3.4) LA dimension (AP) 2D 3.2 cm (2.3 - 3.8) LAd ISD 4CH 4.5 cm (2.9 - 5.3) LA ISD 4CH W 4.3 cm (2.5 - 4.5) Name Value Normal Range LA ESV SP 4CH (A/L) 53.81 ml - LA ESV SP 2CH (A/L) 40.04 ml - LA ESV BP (A/L) 48.87 ml - LA ESV BP (A/L) index 26 ml/m2 - LA ESV SP 4CH (MOD) 51.4 ml - LA ESV SP 2CH (MOD) 35.77 ml - Name Value Normal Range MV E-wave Vmax 0.4 m/sec - MV deceleration time 261 msec - MV A-wave Vmax 0.8 m/sec - MV E:A ratio 0.5 ratio - LV septal e' Vmax 0.03 m/sec - LV lateral e' Vmax 0.05 m/sec - LV E:e' septal ratio 13 ratio - LV E:e' lateral ratio 8 ratio - Name Value Normal Range AV Vmax 1.1 m/sec - AV VTI 17.43 cm - AV peak gradient 5 mmHg - AV mean gradient 3.1 mmHg - LVOT Vmax 1.1 m/sec - LVOT VTI 16.4 cm - LVOT peak gradient 5 mmHg - LVOT mean gradient 2.1 mmHg - PITA Vmax 0.6 m/sec - Name Value Normal Range TR Vmax 2 m/sec - TR peak gradient 16 mmHg - RAP 3 mmHg - RVSP 19 mmHg - IVC diameter 1.8 cm - Name Value Normal Range PV Vmax 1 m/sec - PV peak gradient 4 mmHg -
[2017-05-15] MEDS: Terazosin CAP* 5 MG PO SCH (17:30)
[2017-05-15] MEDS: CMC: Rosuvastatin (NF) 20 MG TAB PO SCH (17:30)
--- NOTE | 2017-05-15 18:19 | PN ---
Subjective Date of Service: 05/15/17 Interval History: Patient denies any new complaints, able to walk with a cane and no new neurological deficits. Patient denies SOB, CP, Abdominal pain, F/C, N/V, dysuria , diarrhea, or other pain. Patient has many questions about his disease process which were answered to his satisfaction. Family History: Unchanged from Admission Social History: Unchanged from Admission Past Medical History: Unchanged from Admission Objective Active Medications: Acetaminophen (Tylenol Tab*) 650 mg PO Q4H PRN PRN Reason: PAIN Last Admin: 05/14/17 00:13 Dose: 650 mg Aspirin (Aspirin Tab*) 325 mg PO DAILY [facility] Last Admin: 05/15/17 09:50 Dose: 325 mg Clopidogrel Bisulfate (Plavix Tab*) 75 mg PO DAILY [facility] Last Admin: 05/15/17 09:50 Dose: 75 mg Finasteride (Proscar Tab*) 5 mg PO DAILY [facility] Last Admin: 05/15/17 09:50 Dose: 5 mg Heparin Sodium (Porcine) (Heparin Vial(*)) 5,000 units SUBCUT Q8HR [facility] Last Admin: 05/15/17 14:38 Dose: 5,000 units Lorazepam (Ativan Inj*) 0.5 mg IV PUSH ONCE PRN PRN Reason: ANXIETY Stop: 05/15/17 23:59 Last Admin: 05/15/17 10:05 Dose: 0.5 mg Ondansetron HCl (Zofran Inj*) 4 mg IV Q6H PRN PRN Reason: NAUSEA Rosuvastatin Calcium (Crestor (Nf)) 40 mg PO 1700 [facility] Last Admin: 05/15/17 17:30 Dose: 40 mg Terazosin HCl (Hytrin Cap*) 10 mg PO QPM [facility] Last Admin: 05/15/17 17:30 Dose: 10 mg Vital Signs - 8 hr 05/15/17 05/15/17 11:31 13:29 Temperature 97.3 F Pulse Rate 78 Respiratory 18 16 Rate Blood Pressure 118/69 (mmHg) O2 Sat by Pulse 95 Oximetry Oxygen Devices in Use Now: None Appearance: Patient is a 81yo male who appears stated age and is sitting in the bed in [facility]. Eyes: No Scleral Icterus, PERRLA Ears/Nose/Mouth/Throat: NL Teeth, Lips, Gums, Clear Oropharnyx, Mucous Membranes Moist Neck: NL Appearance and Movements; NL JVP, Trachea Midline Respiratory: Symmetrical Chest Expansion and Respiratory Effort, Clear to Auscultation Cardiovascular: NL Sounds; No Murmurs; No JVD, RRR, No Edema Abdominal: NL Sounds; No Tenderness; No Distention, No Hepatosplenomegaly Lymphatic: No Cervical Adenopathy Extremities: No Edema, No Clubbing, Cyanosis Skin: No Rash or Ulcers, No Nodules or Sclerosis Neurological: Alert and Oriented x 3, NL Sensation, - - Weakness in left hand consistent with previous exams. No change. Result Diagrams: 05/12/17 13:40 05/12/17 13:40 Additional Lab and Data: . Assess/Plan/Problems-Billing Pt is a 81 y/o M w hx of HLD, BPH, recent CVA 03/2017 who presented to the ED on 05/12 with word finding difficulty and weakness similar to previous CVA. Patient is returned almost to baseline. - Patient Problems (1) CVA (cerebral vascular accident) Current Visit: No Status: Acute Code(s): I63.9 - CEREBRAL INFARCTION, UNSPECIFIED SNOMED Code(s): 096227090 Comment: CVA of likely embolic origin. Appreciate neurology consultation. Records sent to [facility] for second opinion and to assess for possible appropriateness of endarterectomy. MRI shows many areas of infarct in distribution of left MCA which is consistent with previous stroke and points to artery-artery embolus likely from plaque in carotid artery or MCA. Plavix added to regimen (only ASA) and lipitor changed to Crestor 40mg. No Thrombus or PFO noted on echo. No evidence of Afib on telemetry. Will order loop recorder at discharge. HbgA1c at 5.6 2 months ago. (2) HLD (hyperlipidemia) Current Visit: Yes Status: Acute Code(s): E78.5 - HYPERLIPIDEMIA, UNSPECIFIED SNOMED Code(s): 28167414 Comment: LDL at 43. Continue High dose Crestor due to repeated treatment failure. (3) BPH (benign prostatic hyperplasia) Current Visit: No Status: Acute Code(s): N40.0 - BENIGN PROSTATIC HYPERPLASIA WITHOUT LOWER URINRY TRACT SYMP SNOMED Code(s): 198303047 Comment: Continue finasteride and terazosin. (4) DVT prophylaxis Current Visit: No Status: Acute Code(s): EXU5406 - SNOMED Code(s): 600707276 Comment: SQ Heparin (5) Full code status Current Visit: No Status: Acute Code(s): Z78.9 - OTHER SPECIFIED HEALTH STATUS SNOMED Code(s): 474032445 Status and Disposition: Inpatient, Disposition pending [facility].
[2017-05-15] MEDS: Acetaminophen TAB* 325 MG PO PRN (22:13)
[2017-05-16] MEDS: Heparin VIAL(*) 5000 UNITS/ML VIAL (FIVE THOUSAND) SUBCUT SCH (05:45)
[2017-05-16] MEDS: Finasteride TAB* 5 MG PO SCH (08:08)
[2017-05-16] MEDS: Clopidogrel TAB* 75 MG PO SCH (08:08)
[2017-05-16] MEDS: Aspirin TAB* 325 MG PO SCH (08:08)
[2017-05-16 08:51] VITALS: BP 126/63
--- NOTE | 2017-05-16 10:28 | CONS ---
FOLLOWUP NOTE: DATE OF SERVICE: 05/15/17 PATIENT OF: Dr. Watt and Namrata William NP. HISTORY OF PRESENT ILLNESS: The patient has had no new symptoms since the day before and denied any chest pain. He has no headache. He continues to have weakness and incoordination of his left upper extremity. MEDICATIONS: Include: 1. Aspirin 325 daily. 2. Plavix 75 mg daily. 3. Crestor 40 mg daily. 4. Proscar. 5. Hytrin. PHYSICAL EXAM: Temperature 97.3 yesterday, pulse 78, respirations 18, blood pressure 118/69. He was alert and oriented. He had cranial nerves II through XII intact. He had left pronator drift. 4+/5 strength in his left arm and leg with dysmetria in his left arm and leg. No sensory changes. Chest: Clear. Cardiovascular: Regular rate and rhythm. Abdomen: Soft with positive bowel sounds. I reviewed his MRI scan from yesterday, which showed multiple acute stroke in his right carotid distribution principally in his right MCA distribution. He had prior stroke in this distribution of his prior MRI scan, which I also reviewed and that was from 04/01/17, but there is numerous new strokes in that distribution. I reviewed his CTA most recently, which showed no major clot or plaque. I discussed this with the physician medical staff assistant as well as the family that he has multiple strokes in one vascular distribution and typically we would expect this to be due to arthrosclerotic disease or vascular disease in his particular case, the right carotid or possibly the right MCA. However, there is nothing on CTA that will clearly confirm this. It would be statistically unlikely for this to be due to embolic from the heart with this particular pattern, but given the relatively normal CTA, I recommended a loop recorder electrodes since if he had a cardiac arrhythmia such as atrial fibrillation, he would need to be anticoagulated. I have also discussed the case with Dr. Georgina Traore given the unusual constellation of findings, namely apparent significant vascular disease with recurrent stroke, but in the presence of a normal CTA or a relatively normal CTA , also his analysis of the case is the same as giana. He recommended that the neuroradiologist here review his prior CTA, which he did not have, since the most recent CTA had some artifact at the takeoff of the comment carotid, but he agreed with the formulation of the case. After I was able to reach him last evening, we discussed the case with Ben Gray, who will be sending him home on aspirin, Plavix, statin, with followup with Dr. Watt, but also to get loop recorder placed and I will have to call in to Dr. Michel today if I do not reach him, I will leave word with Dr. Watt for him to follow that review of CTAs up with Dr. Michel. Thank you for sharing this case. [id number]/[facility] #: [id number] ASHLEY
--- NOTE | 2017-05-17 01:56 | DS ---
CC: Dr. Abhijit Shetty; Dr. Navjot Watt; Dr. Maury Perry; Dr. Lani Coker * DISCHARGE SUMMARY: DATE OF ADMISSION: 05/12/17 DATE OF DISCHARGE: 05/16/17 PRIMARY CARE PROVIDER: Dr. Abhijit Shetty. MY ATTENDING WHILE IN THE HOSPITAL: Dr. Saray Pearson * (DICTATED BY LACEY SHARPE) NEUROLOGIST: Dr. Navjot Watt. CONSULTING PROVIDERS: Dr. Maury Perry and Dr. Lani Coker of Neurology. 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 SECONDARY DISCHARGE DIAGNOSES: 1. Benign prostatic hyperplasia. 2. Vitamin B12 deficiency. 3. Previous cerebrovascular accident in March 2017. STUDIES DONE WHILE IN THE HOSPITAL: 1. Brain CT from 05/12/17 read as no intracranial mass or hemorrhage. 2. Chest x-ray from 05/12/17 read as no active cardiopulmonary disease noted. 3. Electrocardiogram from 05/12/17 shows normal sinus rhythm, no block, no ST- segment changes, normal axis, no hypertrophy noted, QTc of 429, regular rhythm, no other abnormalities. 4. Head CTA from 05/12/17 read as intracranial calcific plaque at the origin of both internal carotid arteries. Additionally, there is soft plaque at the proximal left internal carotid artery, intracranial circulation demonstrates no aneurysmal dilatation, no branch occlusion is identified. This was read again by neurologist in [place]. There was artifact at the take off of the common carotid making this read less interpretable. 5. Transthoracic echocardiogram from 05/13/17 read as moderate concentric left ventricular hypertrophy, observed estimated ejection fraction 60% to 65%. There is a reversal of mitral valve flow pattern suggestive of diastolic dysfunction, right ventricle wall thickness is mildly increased. Right ventricular global systolic function low normal. Bubble study is negative. Mild pulmonary regurgitation, similar study of 04/09/17, the high index of suspicion for cardiac source of embolism, consider further evaluation with a transesophageal echo. 6. Brain MRI from 05/15/17 read as multiple punctate areas of restricted diffusion scattered throughout the right cerebral hemisphere, in the subcortical and cortical areas of the right frontoparietal and temporal lobes consistent with embolic phenomenon, extensive mucosal thickening of the paranasal sinuses. MEDICATIONS AT DISCHARGE: 1. Terazosin 10 mg p.o. q.p.m. 2. Vitamin B12 1000 mcg/1 mL injection monthly. 3. Aspirin 325 mg p.o. daily. 4. Finasteride 5 mg p.o. daily. 5. Clopidogrel 75 mg p.o. daily. 6. Rosuvastatin 40 mg p.o. q.p.m. New medications at discharge: 1. Clopidogrel. 2. Rosuvastatin. Medications discontinued at discharge: Lipitor 80 mg p.o. daily. HOSPITAL COURSE: This is a brief summary of the patient's presentation. For more details, please see history and physical from Alyssa Troy NP, from . In brief, the patient is a 81-year-old male with a past medical history significant for the above, who was eating at [employer] and developed left- sided weakness as well as speech difficulties. The patient was recently admitted to this hospital with a stroke with previous symptoms consisting of left-sided weakness. He was completely back to normal after 3 days in rehab from his previous stroke. 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 The patient was unable to stand up before he came to the emergency room. CT showed the above Neurology consultation was obtained. The patient was started on full- dose aspirin, his statin was increased to 40 mg of rosuvastatin. A lipid profile was checked, which was excellent with an LDL at least 30 to 40s and HDL in the low 40s. The patient had clopidogrel added on as well. The patient began to improve greatly with regards to his neurological complaints immediately. The patient was not a candidate for tPA based on Telestroke consult due to previous recent stroke. The patient improved greatly overnight. An MRI was ordered, however, was unable to be completed due to the holiday. Transthoracic echocardiogram was also ordered with bubble study as there was not done in March. This was also unable to be done until after the holiday. The patient was in agreement to stay. The patient returned to baseline with regards to strength on 05/13/17, but continued to have difficulty with fine motor skill on his left side. The patient had no other abnormalities or complaints. The patient had many questions, which were answered to his satisfaction. The patient continued on 05/13/17 and 05/14/17 with no abnormalities. The MRI of the brain from 05/15/17 and echocardiogram from 05/15/17 read as above and pointed to an embolic phenomenon. This was believed to be originating from his carotid artery though this was not clear from the CTA as there was not as significant an atherosclerotic plaque burden as would be expected with this disease and the patient was monitored on telemetry for 5 days with no evidence of atrial fibrillation nor as he had any symptoms of palpitations, so the origin of this embolus was not entirely clear. Stroke experts at [place] were consulted and they agreed with the impression of neurologist here that this is likely embolic phenomenon. It was requested that the neuroradiologist review this with the brain imaging with the patient's outpatient neurologist, Dr. Watt, to help clarify the situation. The patient was anxious to be discharged and was discharged to home on medications as above to have an event recorder and plan to check for paroxysmal atrial fibrillation and to follow up with his primary care provider and his primary neurologist, Dr. Watt, outpatient to further clarify the cause of his stroke and maximize secondary prevention. PHYSICAL EXAMINATION ON DAY OF DISCHARGE: General: The patient is a 81-year- old male who appears his stated age and sitting comfortably in bed, in no acute distress. Vital Signs: At the time of discharge temperature 97.7, heart rate 72, respiratory rate 14, oxygen saturation 96% on room air, blood pressure 126/ 63. HEENT: Head normocephalic, atraumatic. Sclerae anicteric. No conjunctival injection. The patient's left pupil is oblong and points upwards at the approximate 2 o'clock position, the patient states this is related to a previous nail injury in his eye. The patient also has possible right facial droop. 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 Nasal and oral mucosa moist. No pharyngeal erythema, postnasal drip, or exudate. Cardiac: Regular rate and rhythm. No clicks, murmurs, gallops, or rubs. Pulses 2+ in his bilateral dorsalis pedis, posterior tibialis, and radial areas. No edema noted in the lower extremities. Respiratory: Clear to auscultation bilaterally. No wheezes, rales, or rhonchi. Abdomen: Soft, nontender, nondistended. Bowel sounds present, normoactive in all 4 quadrants. No hepatosplenomegaly. No abdominal bruits auscultated. Genitourinary: No suprapubic tenderness or CVA tenderness. Skin: Clean, dry, and intact. No rash. Psychiatric: Pleasant and cooperative; however, the patient is anxious at times about his diagnosis and seems discouraged of other possibility stroke. Neuro: Cranial nerves II through XII grossly intact for the above findings. Strength: 5/5 bilaterally in the distal and proximal muscle groups in the upper and lower extremities except for the patient has approximate 4/5 strength in the fourth and fifth fingers of his left hand, which was preexisting before this hospitalization. The patient performed cerebellar testing without difficulty. DIAGNOSTIC STUDIES/LAB DATA: White blood cell count 5.8, hemoglobin 14.1, platelet count 176. INR 0.96, APTT 30.3. Sodium 138, potassium 4.2, chloride 106, carbon dioxide 26, anion gap 6, BUN 20, creatinine 1.17, glucose 148, lactic acid 1.7, calcium 9.1. Bilirubin 1.0, AST 18, ALT 16, alkaline phosphatase 118. Troponin I 0.01. Total protein 6.5. LDL cholesterol 31, repeat 43; HDL cholesterol 36, repeat 35. Urine, benign. DISCHARGE PLAN: The patient will be discharged to home with the support of his school examiner. The patient will have an event monitor placed through Cardiology, which will be reviewed with his primary neurologist, Dr. Watt, to assess for paroxysmal atrial fibrillation. As above Dr. Watt will review the imaging of his head with the neuroradiologist doctor, Dr. Mckay, to help clarify any possible sources of embolism that might be present in the cranial circulation. The patient should follow up with his primary care provider within 1 week for general medical management. The patient should follow up with Dr. Watt next month for followup on his hospitalization. The patient is to return to hospital for new neurologic deficits. ACTIVITIES: The patient should engage in activity as tolerated, avoiding dangerous activities given his new neurological deficits. DIET: The patient should have a heart-healthy diet with low fat and with no caffeine. TIME SPENT: Approximately 60 minutes was spent on this discharge, 40 of which spent [id number] with the patient obtaining history and physical and discussing the treatment plan. LACEY SHARPE [id number]/[facility] #: [id number] ASHLEY
== END 2017-05-16 10:25 | disposition home or self-care (01) | DRG 65 ==
LOC: ED 13:29 → MEDTELE 17:48 → ED 20:13 → OBSVTOIN 05-13 15:00
PROVIDERS: ADMIT Internal Medicine; ATTEND Hospitalist
DX: I63.9 Cerebral infarction, unspecified (principal); G81.94 Hemiplegia, unspecified affecting left nondominant side; D72.1 Eosinophilia; M47.9 Spondylosis, unspecified; I37.1 Nonrheumatic pulmonary valve insufficiency; E78.5 Hyperlipidemia, unspecified; F32.9 Major depressive disorder, single episode, unspecified; H91.90 Unspecified hearing loss, unspecified ear; N40.0 Benign prostatic hyperplasia without lower urinary tract symptoms; R47.81 Slurred speech; R29.702 NIHSS score 2; Z98.41 Cataract extraction status, right eye; Z97.4 Presence of external hearing-aid; Z72.89 Other problems related to lifestyle; Z79.02 Long term (current) use of antithrombotics/antiplatelets; Z79.82 Long term (current) use of aspirin
CPT/HCPCS: 36415; 70450; 70496; 70498; 70551; 71010; 80053; 80061; 81003; 83605; 84484; 85025; 85610; 85730; 86850; 86900; 86901; 93005; 93306; A9270-GY; G0378; G8978-GP-CI; G8979-GP-CH; J1644; J2060; Q9967

== ENCOUNTER → 2017-06-22 11:59 | Day surgery (SDC) | payer MEDICARE, BC ==
[~2017-06-22 11:59] MED LIST: Flumazenil* 0.1 MG/ML 5 ML MDV ONE; Lidocaine 2% VISCOUS* 15 ML UDC ONE; Midazolam* 1 MG/ML 10 ML VIAL (10 MG) ONE; Naloxone* 0.4 MG/ML 1 ML VIAL ONE; fentaNYL* 50 MCG/ML 2 ML VIAL (100 MCG VIAL) ONE
--- NOTE | 2017-06-22 19:17 | TEE ---
Patient: JONES MURPHY [facility] Rec#: [id number] : 1935 Date: 06/22/2017 Age: 81y Height: 175.26 cm / 69.0 in Weight: 74.84 kg / 164.9 lbs Sex: M BSA: 1.9 Room#: OP Type: Outpatient Referring: Rolly Porter MD Performing: Rolly Porter MD Reading: Rolly Porter MD Cheese Grader: Lani Maria RDCS Nurse: Amena Wilson RN CC: Abhijit Shetty MD Transesophageal Echocardiogram Indication: CVA//SOB BP: 127/76 HR: 74 Rhythm: NSR Findings History: SSS,HLD,CVA 04/2017,BPH. Technical Comments: The study quality is good. Left Ventricle: The left ventricular chamber size is normal. Global left ventricular wall motion and contractility are within normal limits. There is normal left ventricular systolic function. The estimated ejection fraction is 60-65%. Left Atrium: The left atrial chamber size is normal. The left atrial appendage velocity is normal. There is no thrombus visualized in the left atrial appendage. Right Ventricle: The right ventricular cavity size is normal. The right ventricular global systolic function is normal. Right Atrium: The right atrial cavity size is normal. There is no patent foramen ovale visualized. There is no evidence of patent foramen ovale shunting. A patent foramen ovale is not demonstrated with color Doppler and agitated contrast. Aortic Valve: The aortic valve is trileaflet. Also noted is a questionable collection of tissue seen in the potential space. Systolic excursion of the aortic valve is normal. There is a trace of aortic regurgitation. There is no evidence of aortic stenosis. Mitral Valve: The mitral valve leaflets appear normal. There is trace to mild mitral regurgitation. There is no evidence of mitral stenosis. Tricuspid Valve: The tricuspid valve leaflets are normal. There is trace tricuspid regurgitation. There is no tricuspid stenosis. Pulmonic Valve: The pulmonic valve appears normal. There is trace to mild pulmonic regurgitation. There is no pulmonic stenosis. Pericardium: The pericardium appears normal. Aorta: There is mild dilatation of the ascending aorta. There is no dilatation of the aortic arch. There is mild dilatation of the aortic root. There is plaque visualized in the descending aorta. Seen as moderate. Pulmonary Artery: The main pulmonary artery appears normal. Venous: The bicaval view was obtained and appears normal. The pulmonary veins appear normal in size. 3 of 4 seen. The flow pattern of the pulmonary veins appear normal. VIOLE[facility] Procedures: History and physical as well as labs were reviewed. The patient was in a fasting state. Risks and benefits of the procedure, including alternatives, were discussed and written informed consent was obtained. The patient and/or their health care industrial sales representative expressed understanding of the procedure, risks and benefits. Baseline and continuous monitoring of blood pressure, heart rate, pulse oximetry and heart rhythm was performed throughout the procedure. The appropriate time-out procedure was performed as per [facility] protocol. The patient was placed in the left lateral decubitus position. No bite block needed as patient is edentulous. The patient's posterior pharynx was anesthetized with 20ml of 2% viscous lidocaine. The patient received IV Midazolam with a total dose of 4mg. The patient received IV Fentanyl with a total dose of50 mcg. The multiplane transesophageal echocardiogram probe was inserted through the posterior oropharynx and advanced into the esophagus without difficulty. Multiple 2D images were obtained of the heart and its related structures. Color flow Doppler was used for evaluation. Spectral Doppler was also used. The atrial septum was interrogated with color flow Doppler. At the conclusion of the procedure the probe was removed with continuous suction without complications. The patient tolerated the procedure with no apparent complications. Conclusions The left ventricular chamber size is normal. There is normal left ventricular systolic function. The estimated ejection fraction is 60-65%. There is no thrombus visualized in the left atrial appendage. A patent foramen ovale is not demonstrated with color Doppler and agitated contrast. The aortic valve is trileaflet. Also noted is a questionable collection of tissue seen in the potential space. There is a trace of aortic regurgitation. There is trace to mild mitral regurgitation. There is trace to mild pulmonic regurgitation. There is mild dilatation of the ascending aorta. There is mild dilatation of the aortic root. Measurements Name Value Normal Range Aortic Annulus 2.4 cm (1.4 - 2.6) Ao root diameter (2D) 4 cm (2.1 - 3.5) Ascending Ao 3.6 cm (2.1 - 3.4) Name Value Normal Range MV E-wave Vmax 0.6 m/sec - MV deceleration time 150 msec - MV A-wave Vmax 0.7 m/sec - MV E:A ratio 0.78 ratio -
== END | disposition home or self-care (01) ==
LOC: CHICATH 11:59
PROVIDERS: ATTEND Internal Medicine Cardiovascular Disease
DX: I49.5 Sick sinus syndrome (principal); I63.9 Cerebral infarction, unspecified; I37.1 Nonrheumatic pulmonary valve insufficiency; R06.02 Shortness of breath; G47.9 Sleep disorder, unspecified; E78.5 Hyperlipidemia, unspecified; D51.0 Vitamin B12 deficiency anemia due to intrinsic factor deficiency
CPT/HCPCS: 93312; 93325; 99156; 99157; J2250; J2310; J3010

== ENCOUNTER 2017-09-11 11:29 | Inpatient (IN) | payer MEDICARE, BC ==
[2017-09-11 12:01] LABS: ABS Basophils 0 10^3/ul (0-0.2); ABS Eosinophils 0.1 10^3/ul (0-0.6); ABS Monocytes 0.5 10^3/ul (0-0.8); ABS Neutrophils 2.4 10^3/ul (1.5-7.7); ABS Nucleated RBC 0 10^3/ul; Eosinophil % 1.7 % (0-6); Hematocrit 38 % (42-52); Hemoglobin 13.1 g/dl (14.0-18.0); Mean Corpuscular HGB Conc 34 g/dl (31-36); Mean Corpuscular Hemoglobin 31 pg (27-31); Mean Corpuscular Volume 92 fL (80-94); Nucleated Red Blood Cells % 0; Platelet Count 147 10^3/ul (150-450); Red Blood Count 4.17 10^6/ul (4.0-5.4); Red Cell Distribution Width 14 % (10.5-15)
[2017-09-11 12:20] LABS: INR 0.97 (0.77-1.02)
[2017-09-11 12:26] LABS: EGFR Non-African American 70.3 (>60)
--- NOTE | 2017-09-11 12:27 | RAD ---
Indication: LEFT upper extremity weakness. Comparison: May 15, 2017 MRI remarkable for restricted diffusion consistent with ischemia at the RIGHT frontal, parietal, and temporal lobes. May 12, 2017 CT brain. Technique: Noncontrast CT vertex of skull through foramen magnum. Report: There is dyer matter white matter obscuration and volume loss at the RIGHT frontal and parietal lobes corresponding with the regions of ischemia on the previous MRI and with progression compared with the May 12, 2017 CT. Negative for new distribution dyer matter white matter obscuration or mass effect to confirm an acute process. Negative for intra or extra-axial hemorrhage. Diffuse mild prominence of the cerebral sulci reflecting atrophy. Mild proportional enlargement of the ventricles. Negative for hydrocephalus. Patent basal cisterns. No suspicious abnormality at the orbits. No suspicious calvarial or skull base lesion evident. Chronic mucosal thickening at the paranasal sinuses with interval improvement at the frontal sinuses compared with the 2017 CT. Air-fluid level at the LEFT frontal sinus and frontoethmoidal recess which may reflect acute sinusitis. Clear mastoid air spaces. Unremarkable scalp. IMPRESSION: 1. Stigmata of previous predominant RIGHT MCA distribution infarct. 2. Negative for new distribution dyer matter white matter obscuration or mass effect to confirm an acute process. Negative for intra or extra-axial hemorrhage. 3. Air-fluid level at the LEFT frontal sinus and frontoethmoidal recess which may reflect acute sinusitis.
[2017-09-11] MEDS ORDERED: Iohexol 350* (CONTRAST) 500 ML MDV IV ONE (12:55)
--- NOTE | 2017-09-11 14:09 | RAD ---
INDICATION: LEFT upper extremity weakness. Previous RIGHT-sided stroke. COMPARISON: Noncontrast head CT of the same date and May 12, 2017 CT angiogram. TECHNIQUE: Multidetector CT images were obtained from the aortic arch to the vertex of the head with 80 mL Omnipaque 350 IV contrast. Arterial phase of enhancement. Multiplanar reformation including maximum intensity projection. 3-D arterial volume rendering. Stenosis estimations based on denominator of distal arterial diameter. NECK ANGIOGRAM REPORT: Variant common origin of the LEFT common carotid and RIGHT brachiocephalic arteries from the aortic arch. Negative for ostial stenosis of the aortic arch branch vessels. Irregular contour predominant noncalcified plaque at the proximal segment of the LEFT subclavian artery without hemodynamic significant resulting stenosis or interval change. Tortuous RIGHT common carotid artery. Predominant noncalcified atherosclerotic plaque at the proximal segment of the RIGHT internal carotid artery results in approximate 60% stenosis without change. Tortuous LEFT common carotid artery. Predominant noncalcified plaque at the proximal LEFT internal carotid artery results in approximate 50% stenosis without change. Calcific and noncalcific plaque results in approximate 70% ostial stenosis at the bilateral codominant vertebral arteries without significant change. Both vertebral arteries contribute to the basilar artery. Diffuse advanced cervical spine degenerative spondylosis and facet joint osteoarthritis without significant interval change. NECK ANGIOGRAM IMPRESSION: 1. Approximate 60% RIGHT and 50% LEFT proximal internal carotid artery stenosis without significant interval change. 2. Approximate 70% ostial stenosis at the bilateral codominant vertebral arteries without significant change. HEAD ANGIOGRAM REPORT: Atherosclerotic plaque at the carotid siphons without suggestion of hemodynamic significant stenosis. Unremarkable M1 and M2 segments of the middle cerebral arteries. Patent bilateral A1 and A2 segments of the anterior cerebral arteries. No definitive anterior communicating artery visualized. Unremarkable cerebellar artery origins and basilar artery. Patent posterior cerebral arteries are supplied primarily by the posterior circulation with normal variant hypoplastic posterior communicating arteries. No intracranial aneurysm or vascular malformation evident. Normal opacification of the dominant dural venous sinuses. HEAD ANGIOGRAM IMPRESSION: No central intracranial large vessel occlusion or hemodynamic significant stenosis visualized. CPT II Codes: 3100F
[2017-09-11 14:11] LABS: Urine Appearance Clear; Urine Blood Negative (Negative); Urine Color Yellow; Urine Ketones Negative (Negative); Urine Protein Negative (Negative); Urine Specific Gravity 1.031 (1.010-1.030); Urine Urobilinogen Negative (Negative)
[2017-09-11] MEDS ORDERED: Ondansetron INJ* 2 MG/ML VIAL IV PRN (16:05)
[2017-09-11] MEDS ORDERED: hydrALAZINE IV* 20 MG/ML VIAL IV SLOW PU PRN (16:05)
[2017-09-11] MEDS ORDERED: Acetaminophen TAB* 325 MG PO PRN (16:05)
--- NOTE | 2017-09-11 17:19 | ED ---
Brian Walker Thomas, scribed for Cooper López MD on 09/11/17 at 1142 . Neurological HPI - HPI Summary HPI Summary: The patient is an 82 year old male who went to bed yesterday and woke up today at 03:30 to go to the bathroom and he was neurologically at his baseline. When he woke back up at 06:00, he had left-sided weakness and reports he could barely walk. By 07:00, his left-sided weakness had mostly resolved. He denies sensory deficit, aphasia, or any other symptoms in the emergency department. He had a stroke in March 2017 and another stroke in April 2017. At baseline, the patient has some left-sided weakness from these strokes. The patient recently changed his mask for his obstructive sleep apnea. - History of Current Complaint Chief Complaint: EDWeakness Stated Complaint: POSSIBLE CODE SPAULDING Hx Obtained From: Patient Onset/Duration: Started hours ago, Still Present Timing: Intermittent Episodes Lasting: Onset Severity: Moderate Current Severity: Mild Pain Intensity: 0 Pain Scale Used: 0-10 Numeric Aggravating: Nothing Associated Signs and Symptoms: Positive: Weakness - left-sided. Negative: Impaired Speech, Fever - Additional Pertinent History Primary Care Physician: [id number] - Allergy/Home Medications Allergies/Adverse Reactions: Allergies Allergy/AdvReac Type Severity Reaction Status Date / Time No Known Allergies Allergy Verified 09/11/17 11:38 Home Medications: Home Medications Aspirin TAB* [Aspirin 325 MG TAB*] 325 mg PO DAILY 09/11/17 [History Confirmed 09/11/17] Clopidogrel TAB* [Plavix TAB*] 75 mg PO DAILY 09/11/17 [History Confirmed ] Finasteride TAB* [Proscar TAB*] 5 mg PO DAILY 09/11/17 [History Confirmed ] Rosuvastatin (NF) [Crestor (NF)] 40 mg PO 1700 09/11/17 [History Confirmed 09/11] Terazosin HCl 10 mg PO DAILY 09/11/17 [History Confirmed 09/11/17] PMH/Surg Hx/FS Hx/Imm Hx Endocrine/Hematology History: Reports: Hx Anemia - VIT B 12 Denies: Hx Diabetes Cardiovascular History: Denies: Hx Cardiac Arrest, Hx Cardiomegaly, Hx Hypertension, Hx Pacemaker/ICD Respiratory History: Reports: Hx Sleep Apnea, Other Respiratory Problems/ Disorders - Patient states he becomes SOB on exertion for the last 2 years. Denies: Hx Asthma, Hx Chronic Bronchitis, Hx Chronic Obstructive Pulmonary Disease (COPD), Hx Lung Cancer, Hx Pulmonary Embolism GI History: Denies: Other GI Disorders History: Reports: Hx Benign Prostatic Hyperplasia Denies: Hx Renal Disease Musculoskeletal History: Reports: Hx Arthritis - spine Denies: Hx Rheumatoid Arthritis, Hx Back Problems, Hx Osteoporosis, Other Musculoskeletal History Sensory History: Reports: Hx Cataracts - R eye, with removal, Hx Contacts or Glasses, Hx Hearing Aid - NOT IN, Hx Hearing Problem Denies: Hx Eye Injury Opthamlomology History: Reports: Hx Cataracts - R eye, with removal, Hx Contacts or Glasses Denies: Hx Eye Injury Neurological History: Reports: Hx Dementia Denies: Hx Developmental Delay, Hx Headaches, Other Neuro Impairments/ Disorders Psychiatric History: Reports: Hx Depression - NO MEDS Denies: Hx Panic Disorder - Surgical History Surgery Procedure, Year, and Place: HERNIA X2 (1984, 1999) Hx Anesthesia Reactions: No Infectious Disease History: No Infectious Disease History: Denies: Hx Clostridium Difficile, Hx Hepatitis, Hx of Known/Suspected MRSA, Hx Shingles, Hx Tuberculosis, History Other Infectious Disease, Traveled Outside the [place] in Last 30 Days - Family History Known Family History: Positive: Other - Pt denies family history when asked - Social History Alcohol Use: Occasionally Alcohol Amount: 3-4 drinks a week Hx Substance Use: No Substance Use Type: Reports: None Smoking Status (MU): Never Smoked Tobacco Review of Systems Negative: Fever Neurological: Negative - aphasia, sensory deficit Positive: Weakness - left-sided All Other Systems Reviewed And Are Negative: Yes Physical Exam - Summary Physical Exam Summary: Appearance: The patient is well-nourished in no acute distress and in no acute pain. Skin: The skin is warm and dry and skin color reflects adequate perfusion. HEENT: The head is normocephalic and atraumatic. The pupils are equal and reactive. The conjunctivae are clear and without drainage. Nares are patent and without drainage. Mouth reveals moist mucous membranes and the throat is without erythema and exudate. The external ears are intact. The ear canals are patent and without drainage. The tympanic membranes are intact. Neck: the neck is supple with full range of motion and non-tender. There are no carotid bruits. There is no neck vein distension. Respiratory: Chest is non-tender. Lungs are clear to auscultation and breath sounds are symmetrical and equal. Cardiovascular: Heart is regular rate and rhythm. There is no murmur or rub auscultated. There is no peripheral edema and pulses are symmetrical and equal. Abdomen: The abdomen is soft and non-tender. There are normal bowel sounds heard in all four quadrants and there is no organomegaly palpated. Musculoskeletal: There is no back tenderness noted. Extremities are non-tender with full range of motion. There is good capillary refill. There is no peripheral edema or calf tenderness elicited. Neurological: Patient is alert and oriented to person, place and time. NIH=1: The patient's left upper extremity drifts when held 10 seconds. Cranial nerves are grossly intact. Deep tendon reflexes are symmetrical and equal in all four extremities. Psychiatric: The patient has an appropriate affect and does not exhibit any anxiety or depression. Triage Information Reviewed: Yes Vital Signs On Initial Exam: Initial Vitals Temp Pulse Resp BP Pulse Ox 98.6 F 68 18 168/89 96 09/11/17 11:37 09/11/17 11:37 09/11/17 11:37 09/11/17 11:37 09/11/17 11:37 Vital Signs Reviewed: Yes Diagnostics - Vital Signs Vital Signs Temp Pulse Resp BP Pulse Ox 09/11/17 11:37 98.6 F 68 18 168/89 96 - Laboratory Lab Results: Lab Results 09/11/17 09/11/17 09/11/17 Range/Units 11:45 11:45 11:45 WBC 4.0 (3.5-10.8) 10^3/ul RBC 4.17 (4.0-5.4) 10^6/ul Hgb 13.1 L (14.0-18.0) g/dl Hct 38 L (42-52) % MCV 92 (80-94) fL MCH 31 (27-31) pg MCHC 34 (31-36) g/dl RDW 14 (10.5-15) % Plt Count 147 L (150-450) 10^3/ul MPV 8.0 (7.4-10.4) um3 Neut % (Auto) 60.6 (38-83) % Lymph % (Auto) 24.0 L (25-47) % Lawrence % (Auto) 12.6 H (0-7) % Eos % (Auto) 1.7 (0-6) % Baso % (Auto) 1.1 (0-2) % Absolute Neuts (auto) 2.4 (1.5-7.7) 10^3/ul Absolute Lymphs (auto) 1.0 (1.0-4.8) 10^3/ul Absolute Monos (auto) 0.5 (0-0.8) 10^3/ul Absolute Eos (auto) 0.1 (0-0.6) 10^3/ul Absolute Basos (auto) 0 (0-0.2) 10^3/ul Absolute Nucleated RBC 0 10^3/ul Nucleated RBC % 0 INR (Anticoag Therapy) 0.97 (0.77-1.02) Sodium 140 (139-145) mmol/L Potassium 4.3 (3.5-5.0) mmol/L Chloride 110 (101-111) mmol/L Carbon Dioxide 21 L (22-32) mmol/L Anion Gap 9 (2-11) mmol/L BUN 15 (6-24) mg/dL Creatinine 1.02 (0.67-1.17) mg/dL Est GFR ( Amer) 90.4 (>60) Est GFR (Non-Af Amer) 70.3 (>60) BUN/Creatinine Ratio 14.7 (8-20) Glucose 109 H (70-100) mg/dL Lactic Acid (0.5-2.0) mmol/L Calcium 9.3 (8.6-10.3) mg/dL Total Bilirubin 0.90 (0.2-1.0) mg/dL AST 20 (13-39) U/L ALT 21 (7-52) U/L Alkaline Phosphatase 88 (34-104) U/L Troponin I 0.00 (<0.04) ng/mL Total Protein 6.4 (6.4-8.9) g/dL Albumin 3.8 (3.2-5.2) g/dL Globulin 2.6 (2-4) g/dL Albumin/Globulin Ratio 1.5 (1-3) TSH 2.65 (0.34-5.60) mcIU/mL Urine Color Urine Appearance Urine pH (5-9) Ur Specific [place] (1.010-1.030) Urine Protein (Negative) Urine Ketones (Negative) Urine Blood (Negative) Urine Nitrate (Negative) Urine Bilirubin (Negative) Urine Urobilinogen (Negative) Ur Leukocyte Esterase (Negative) Urine Glucose (Negative) 09/11/17 09/11/17 Range/Units 11:45 13:55 WBC (3.5-10.8) 10^3/ul RBC (4.0-5.4) 10^6/ul Hgb (14.0-18.0) g/dl Hct (42-52) % MCV (80-94) fL MCH (27-31) pg MCHC (31-36) g/dl RDW (10.5-15) % Plt Count (150-450) 10^3/ul MPV (7.4-10.4) um3 Neut % (Auto) (38-83) % Lymph % (Auto) (25-47) % Lawrence % (Auto) (0-7) % Eos % (Auto) (0-6) % Baso % (Auto) (0-2) % Absolute Neuts (auto) (1.5-7.7) 10^3/ul Absolute Lymphs (auto) (1.0-4.8) 10^3/ul Absolute Monos (auto) (0-0.8) 10^3/ul Absolute Eos (auto) (0-0.6) 10^3/ul Absolute Basos (auto) (0-0.2) 10^3/ul Absolute Nucleated RBC 10^3/ul Nucleated RBC % INR (Anticoag Therapy) (0.77-1.02) Sodium (139-145) mmol/L Potassium (3.5-5.0) mmol/L Chloride (101-111) mmol/L Carbon Dioxide (22-32) mmol/L Anion Gap (2-11) mmol/L BUN (6-24) mg/dL Creatinine (0.67-1.17) mg/dL Est GFR ( Amer) (>60) Est GFR (Non-Af Amer) (>60) BUN/Creatinine Ratio (8-20) Glucose (70-100) mg/dL Lactic Acid 1.4 (0.5-2.0) mmol/L Calcium (8.6-10.3) mg/dL Total Bilirubin (0.2-1.0) mg/dL AST (13-39) U/L ALT (7-52) U/L Alkaline Phosphatase (34-104) U/L Troponin I (<0.04) ng/mL Total Protein (6.4-8.9) g/dL Albumin (3.2-5.2) g/dL Globulin (2-4) g/dL Albumin/Globulin Ratio (1-3) TSH (0.34-5.60) mcIU/mL Urine Color Yellow Urine Appearance Clear Urine pH 7.0 (5-9) Ur Specific [place] 1.031 H (1.010-1.030) Urine Protein Negative (Negative) Urine Ketones Negative (Negative) Urine Blood Negative (Negative) Urine Nitrate Negative (Negative) Urine Bilirubin Negative (Negative) Urine Urobilinogen Negative (Negative) Ur Leukocyte Esterase Negative (Negative) Urine Glucose Negative (Negative) Result Diagrams: 09/11/17 11:45 09/11/17 11:45 Lab Statement: Any lab studies that have been ordered have been reviewed, and results considered in the medical decision making process. - CT CT Brain W/O CT Interpretation: No Acute Changes - IMPRESSION: "1. Stigmata of previous predominant RIGHT MCA distribution infarct. 2. Negative for new distribution dyer matter white matter obscuration or mass effect to confirm an acute process. Negative for intra or extra-axial hemorrhage. 3. Air-fluid level at the LEFT frontal sinus and frontoethmoidal recess which may reflect acute sinusitis." Dr. López has reviewed this report. CT Interpretation Completed By: Radiologist - EKG 11:53 Cardiac Rate: Bradycardia EKG Rhythm: Sinus Bradycardia - at 58 BPM - Additional Comments Diagnostic Additional Comments: CTA HEAD/NECK Interpreted with radiologist NECK ANGIOGRAM IMPRESSION: 1. Approximate 60% RIGHT and 50% LEFT proximal internal carotid artery stenosis without significant interval change. 2. Approximate 70% ostial stenosis at the bilateral codominant vertebral arteries without significant change. HEAD ANGIOGRAM IMPRESSION: No central intracranial large vessel occlusion or hemodynamic significant stenosis visualized. Dr. López has reviewed this report. NIH Scale - NIH Scale Level of Consciousness: Alert/Keenly Responsive Ask Patient the Month and His/Her Age: Both Correct Ask Pt to Open/Close Eyes and Fur Polisher/Release Non-Paretic Hand: Both Correctly Best Gaze (Only Horizontal Eye Movement): Normal Visual Field Testing: No Visual Loss Facial Paresis-Pt to Smile & Close Eyes or Grimace Symmetry: Normal/Symmetrical Motor Function - Right Arm: No Drift-Holds 10 Seconds Motor Function - Left Arm: Drifts LT 10 seconds Motor Function - Right Leg: No Drift-Holds 10 Seconds Motor Function - Left Leg: No Drift-Holds 10 Seconds Limb Ataxia-Must be out of Proportion to Weakness Present: Absent Sensory (Use Pinprick to Test Arms/Legs/Trunk/Face): Normal Best Language (Describe Picture, Name Items): No Aphasia Dysarthria (Read Several Words): Normal Extinction and Inattention: No Abnormality Total Score: 1 Course/Dx - Course Course Of Treatment: Mr. Ferris woke up with his symptoms and signs and therefore not a thrombolytic candidate. His NIHSS was one and therefore he is not likely a clot retrieval candidate either. His initial W/U here is negative and he is being admitted by the hospitalist service. I spoke with Dr. Odell of Neurology. - Diagnoses Provider Diagnoses: CVA (cerebral vascular accident) - Physician Notifications Discussed Care Of Patient With: Shahana Odell Time Discussed With Above Provider: 11:42 Instructed by Provider To: Other - Dr. Odell, neurology, tells me that this is not a Code Sp[place] and would likely not be a candidate for clot retrieval. Dr. Galarza , hospitalist, admits the patient at 14:30. Discharge - Sign-Out/Discharge Documenting (check all that apply): Discharge/Admit/Transfer - Admitted by Dr. Galarza - Discharge Plan Condition: Stable Disposition: ADMITTED TO [facility] - Billing Disposition and Condition Condition: STABLE Disposition: [facility] The documentation as recorded by the Brian banks Thomas accurately reflects the service I personally performed and the decisions made by me, Cooper López MD.
--- NOTE | 2017-09-11 18:12 | HP ---
CC: Dr. Shetty; Dr. Odell* HISTORY AND PHYSICAL: DATE OF ADMISSION: 09/11/17 PRIMARY CARE PROVIDER: Dr. Shetty. ATTENDING PHYSICIAN WHILE IN THE HOSPITAL: Kylie Galarza MD* (report dictated by Yasmani Carlton NP). CONSULTING NEUROLOGIST: Dr. Odell. CHIEF COMPLAINT: Left arm weakness and left leg weakness. HISTORY OF PRESENT ILLNESS: Mr. Ferris is an 82-year-old male patient who presents to our ER today saying that he woke up about 6 o'clock this morning, he had trouble opening and closing his left hand, and he had trouble lifting the left arm and he had trouble walking. He says his leg was buckling on the left leg. He continued about his day, he was able to get around with a cane. He did not initially come into the ER. He had no trouble with his speech, no facial drooping. As things were not getting better throughout the morning, so he decided to come in around 11:30-12 o'clock this afternoon. He came in and he was evaluated. There was concern for new CVA and we were asked to evaluate for admission. He denies any palpitations. Denies any chest pain. Of note, he was here in March for a CVA with a similar deficit, also was here in April with recurrence. He says since April he has been doing okay. He had extensive workup outpatient with a VIOLETA and event recorder for 30 days. To his knowledge, PFO was not found and in addition to this AFib was not found. Because of the worsening symptoms, we were asked to evaluate for admission today. PAST MEDICAL HISTORY: Significant for: 1. CVA x2. 2. BPH. 3. Cataracts. 4. GÓMEZ. 5. B12 deficiency. PAST SURGICAL HISTORY: He has had hernia repair. HOME MEDICATIONS: Include: 1. B12 1 mL IM monthly. 2. Aspirin 325 mg daily. 3. Crestor 40 mg daily. 4. Terazosin 10 mg p.o. daily. 5. Proscar 5 mg daily. 6. Plavix 75 mg daily. ALLERGIES TO MEDICATIONS: Include no known drug allergies. FAMILY HISTORY: Really unknown. His mother at the age of 25 during childbirth and he says he never knew his father. SOCIAL HISTORY: He does not use tobacco. He does drink 1 to 2 drinks a week. Surrogate decision makers are his son iMck and his . REVIEW OF SYSTEMS: There is no documented fever. He denies having any significant weight change. There was no double vision. He denies having any ear discharge. There is no rhinorrhea. There is no sore throat. No thyroid enlargement. Denied having any chest pain. There is no orthopnea. There is no nocturnal dyspnea. He denies having any abdominal pain. There is no nausea. There is no vomiting. No dysuria, no frequency. There is no seizure, no loss of consciousness. No pruritus and no skin ulcerations. Review of 14 systems completed and all others negative. PHYSICAL EXAMINATION GENERAL: At this time, Mr. Ferris is an 82-year-old male patient. He is sitting in the ED stretcher. He does not appear to be in any acute distress. VITAL SIGNS: Blood pressure 173/77, pulse 46, respirations 17, O2 sat 95%, temperature 98.6. HEENT: Head: Atraumatic, normocephalic. Eyes: EOMs intact. Sclerae anicteric and not pale. Throat: Oral mucosa appears to be moist. No oropharyngeal erythema. NECK: Supple. LUNGS: Clear to auscultation bilaterally. No wheezes, rales, or rhonchi. HEART: Sounds S1, S2. Regular rate and rhythm. No murmurs, rubs, or gallops. ABDOMEN: Soft, flat, nontender. Bowel sounds were present. EXTREMITIES: Pulses were 2+ throughout. He is having difficulty moving the left upper and left lower extremity. The right side, he has got 5/5 strength. NEUROLOGICAL: He is awake. He is alert. His speech is clear. He has got a little bit of facial droop on the left side. His electronic scale assembler and tester are unequal. He cannot squeeze on the left side. He has got a significant drift on the left upper extremity, little bit of a drift on the left lower extremity. He cannot do finger- to-nose on the left extremity, he can do on the right side, and the heel -to-garcía is intact bilaterally, although it is a little bit more ataxic on the left side. No other gross focal deficits. SKIN: Grossly intact. DIAGNOSTIC STUDIES/LAB DATA: WBC 4.0, RBC 4.17, hemoglobin 13.1, hematocrit 38 , platelet count 147. INR 0.97. The sodium was 140, potassium of 4.3, chloride 110, bicarb 21, BUN 15, creatinine 1.02, glucose 109, lactic 1.4, calcium 9.3. Total bili 0.9, AST 20, ALT 21, alk phos 88. Troponin 0. TSH was normal at 2.65. Albumin of 3.8. Urine was obtained and it was negative. He did have a brain CT obtained today, which read impression: Stigmata of previous predominant right MCA distribution infarct, negative for new distribution, dyer matter, white matter obscuration or mass effect to confirm an acute process, negative for intra or extra-axial hemorrhage, air fluid level at the frontal sinus and frontal ethmoid recess may reflect acute sinusitis, although he has had no symptoms. He had a head CTA obtained today, impression: Approximately 60% right and 50% left proximal internal carotid artery stenosis without significant interval change, approximately 70% ostial stenosis at the bilateral codominant vertebral arteries without significant change. Head angiogram, no central intracranial large vessel occlusion or hemodynamically significant stenosis evident. EKG obtained today showing a sinus bradycardia at a rate of 58, no ST elevations or T-wave inversions were noted. He had a VIOLETA done in June of this year, which showed no PFO and no atrial thrombus. Old medical records reviewed. ASSESSMENT AND PLAN: Mr. Ferris is an 82-year-old male patient with a complex medical history, coming into the ED today with complaints of worsening left- sided weakness. On evaluation today, there was concern for possible recurrent cerebrovascular accident. He will be admitted under inpatient status for: 1. Cerebrovascular accident. Again, etiology of this is unclear. I did touch base with Dr. Odell. She requested an MRI of the brain, which will be obtained and then to continue his aspirin and Plavix and Crestor. I have ordered frequent neuro checks. We will place him on telemetry. He did have a 30-day event monitor, according to the patient was negative. I am going to try to get those records from Dr. Porter to confirm this. I will get neuro checks and again in the first of being that this could be an acute cerebrovascular accident , I am going to go ahead and keep the head of the bed 30 degrees or less. I have ordered a swallow eval with nursing. He will need PT and OT, but we probably should wait 24 hours before really mobilizing him as head position change could cause cerebral hypoperfusion. I will allow for the blood pressure to run high. We will treat if it gets greater than 200 systolic or diastolic greater than 110. I have ordered p.r.n. hydralazine and we will continue to follow. 2. History of benign prostatic hypertrophy. Continue meds as prescribed. 3. History of obstructive sleep apnea. I have ordered a CPAP. 4. History of B12 deficiency. I will continue meds as prescribed. 5. DVT prophylaxis: In the setting of an acute cerebrovascular accident, if this is a large vessel, I am going to hold off on heparin for at least 24 to 48 hours heparin subcu. We will just put him on SCDs. 6. Fluids, electrolytes, and nutrition: He can have a heart-healthy diet pending the swallow eval. 7. Code status: He wishes to be a DNR. We will attempt to locate MOLST. If one has not been filled out, we will certainly fill out MOLST with him. TIME SPENT: Time spent on the admission was 60 minutes, greater than half the time was spent [id number] with the patient obtaining my history and physical, other half of the time was spent going over the plan of care with the patient and implementing the plan of care. I discussed the plan of care with my attending, Dr. Galarza, she is in agreement. YASMANI CARLTON NP [id number]/[facility] #: [id number] ASHLEY
[2017-09-11] MEDS: Atorvastatin* 80 MG TAB PO SCH (18:29)
--- NOTE | 2017-09-11 21:18 | RAD ---
Indication: Stroke. Image sequences: Sagittal and axial T1, axial T2, FLAIR, diffusion and susceptibility weighted images of the brain were obtained. Ventricular structures are midline. No midline shift is noted. There is central and cortical atrophy noted. Area of restriction of diffusion is noted in the cortex of the T central gyrus and the postcentral gyrus medially. Additional small restriction of diffusion is noted in the middle frontal gyrus. Small area of restriction of diffusion is noted in the frontal right frontal lobe. The left cerebral hemisphere is unremarkable. The FLAIR images demonstrate gliosis in the right frontal and parietal area. Mucosal thickening of the maxillary sinuses and ethmoid air cells are noted. Mucosal thickening of the frontal sinuses are also noted. No susceptibility artifact is noted. The FLAIR images demonstrates gliosis. IMPRESSION: There is restriction of diffusion consistent with acute cortical infarction involving the dyer matter of the precentral gyrus and the postcentral gyrus. There is also cortical restriction of diffusion involving the middle frontal gyrus. Tiny lacunar is noted in the right frontal lobe as well. Atrophy. Gliosis is noted with chronic ischemic White matter change in the right cerebral hemisphere.
[2017-09-12 05:58] LABS: ABS Basophils 0 10^3/ul (0-0.2); ABS Eosinophils 0.1 10^3/ul (0-0.6); ABS Lymphocytes 0.7 10^3/ul (1.0-4.8); ABS Monocytes 0.7 10^3/ul (0-0.8); ABS Neutrophils 2.9 10^3/ul (1.5-7.7); ABS Nucleated RBC 0 10^3/ul; Eosinophil % 3.3 % (0-6); Hematocrit 37 % (42-52); Hemoglobin 12.9 g/dl (14.0-18.0); Lymphocyte % 16.3 % (25-47); Mean Corpuscular HGB Conc 35 g/dl (31-36); Mean Corpuscular Hemoglobin 31 pg (27-31); Mean Corpuscular Volume 91 fL (80-94); Nucleated Red Blood Cells % 0.1; Platelet Count 143 10^3/ul (150-450); Red Blood Count 4.11 10^6/ul (4.0-5.4); Red Cell Distribution Width 13 % (10.5-15); White Blood Count 4.4 10^3/ul (3.5-10.8)
[2017-09-12 06:15] LABS: EGFR Non-African American 77.2 (>60)
[2017-09-12] MEDS ORDERED: Clopidogrel TAB* 75 MG PO SCH (09:00)
[2017-09-12] MEDS ORDERED: Finasteride TAB* 5 MG PO SCH (09:00)
[2017-09-12] MEDS ORDERED: Terazosin CAP* 5 MG PO SCH (09:00)
[2017-09-12] MEDS ORDERED: Aspirin TAB* 325 MG PO SCH (09:00)
--- NOTE | 2017-09-12 12:49 | CONS ---
NEUROLOGY CONSULTATION: DATE OF CONSULT: 09/12/17 LOCATION: The patient is an inpatient. REQUESTING PROVIDER: Yasmani Carlton NP REASON FOR CONSULT: Recurrent right MCA stroke. HISTORY OF PRESENT ILLNESS: Patricio Ferris is an 82-year-old man with a history of right MCA distribution stroke, first in March 2017, followed by recurrent stroke in April 2017, who presented to the emergency department yesterday stating that he woke up around 6 o'clock with difficulty opening his left hand, trouble lifting the arm, and difficulty walking as well. Prior to this, he had recovered reasonably well from his strokes with ability to walk with the cane and reasonable proximal strength in his left upper extremity though he continued to have some difficulty with more fine movements. He denied any difficulty with his speech or facial drooping. He had reported to the emergency room physician that he was last normal around 3 a.m. when he had gotten up to use the rest room, but did not present to the emergency department until around 11:30, simply because things were not getting better. 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 He has never been diagnosed with atrial fibrillation nor has any cardiac source of his strokes been found. He has been on dual antiplatelet therapy since April and was changed from Lipitor to Crestor at that time as well. His CT angiogram has been notable for about a 60% stenosis on the right and 50% on the left with some intracranial calcification as well, but it previously was not thought that the stenosis of his neck vasculature was significant enough disease to account for these recurrent strokes. Upon his admission to the hospital yesterday, he had a repeat CT angiogram and last evening had MRI scan of the brain. His MRI scan shows new strokes in the right MCA distribution, which appear embolic in nature. Elsewhere, there was no evidence for restricted diffusion. He also has significant FLAIR abnormalities in the right hemisphere associated with his current and previous strokes without any significant disease in the left hemisphere or in the brainstem or cerebellum. I reviewed the CT angiogram with Dr. Mckay this morning comparing to previous and he states that though CTA is not necessarily very reliable for predicting unstable plaques, there is a portion of his plaque in the right carotid artery which projects into the lumen , the appearance of which can be associated with unstable plaques. PAST MEDICAL HISTORY: 1. 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 2. BPH. 3. Cataracts. 4. Obstructive sleep apnea. 5. B12 deficiency. 6. Traumatic injury to the left eye, 1972. 7. Hernia repair. HOME MEDICATIONS: 1. Vitamin B12 injections monthly. 2. Aspirin 325 mg daily. 3. Clopidogrel 75 mg daily. 4. Crestor 40 mg daily. 5. Terazosin 10 mg daily. 6. Proscar 5 mg daily. ALLERGIES: No known drug allergies. FAMILY HISTORY: Unknown. SOCIAL HISTORY: He is a nonsmoker. He drinks 1 to 2 drinks per week. He states that he continues to be active and is otherwise relatively healthy aside from these recurrent strokes. REVIEW OF SYSTEMS: He denies any recent fevers or chills. No recent weight loss. He denies any cardiac symptoms such as chest pain, palpitations, tachycardia. He does admit to some shortness of breath over the past 2 to 3 years. Otherwise, as per the HPI. PHYSICAL EXAM: Vital Signs: Temperature 97.9, blood pressure 130/72, heart rate 71, oxygen saturation 94% on room air. His blood pressures were higher upon his initial admission with the highest systolic measured at 168/89 and highest diastolic 158/113. On general examination, he is an elderly man in no acute distress, sitting on the edge of his bed. His heart is in regular rate and rhythm. There are no clear carotid bruits auscultated. His lungs are clear to auscultation. He has no significant lower extremity edema. His skin is intact. His left pupil is traumatic appearing and irregular. On neurologic examination, he is fully awake, alert, and oriented. His speech is fluent without dysarthria or aphasia. Pupils were asymmetric as noted with a traumatic left pupil, which is not reactive to light. His right pupil is 1.5 mm and nonreactive, likely surgically related. Versions are full without nystagmus. Montilla are full to confrontation with no extinction to double simultaneous stimulation. Facial sensation and musculature was full and symmetric. Hearing is intact to voice. Palate elevates symmetrically and the tongue is midline. On motor examination, he has some paratonia in the right upper extremity and lower extremities bilaterally. Strength is full in his right upper extremity and bilateral lower extremities. His left upper extremity deltoid is a grade 2, elbow flexion and extension 4-. He is unable to flex or extend the wrist and he has a grade 1 strength of his finger flexors. Sensation is intact to light touch and temperature in the upper and lower extremities. There is no ataxia on finger-to- nose on the right. He is not able to complete this on the left secondary to weakness. I did not ambulate him at this time. DIAGNOSTIC STUDIES/LAB DATA: His BMP is overall unremarkable aside from fasting glucose of 105 this morning with hemoglobin A1c of 5.7%. Triglycerides 124, total cholesterol 84, LDL 25, HDL 33.8. TSH is normal. CBC overall unremarkable aside from some slight anemia with a hematocrit of 37 and hemoglobin of 12.9 and platelet count of 143. Coagulation studies were normal. Urinalysis was negative for infection. His MRI of the brain was reviewed as per the [facility]. Similarly, his CT angiogram was personally reviewed and again shows approximately 60% right and 50% left proximal internal carotid artery stenosis with about 70% ostial stenosis of the bilateral vertebral arteries. This is interpreted to show no significant change from previous and on close review, there does appear to be a portion of the plaque in the right carotid artery, which projects into the lumen. There is no intracranial large vessel occlusion. There is some intracranial atherosclerosis, which appears approximately equal bilaterally. IMPRESSION: Patricio Ferris is an 82-year-old man admitted with his third stroke in the right middle cerebral artery distribution since March 2017. Based on my review of the CT angiogram with our neuroradiologist, and the recurrent strokes in a single vascular distribution, I am concerned that he may have an unstable plaque in his right carotid artery and I have a call in to [facility] to speak with the vascular neurologist about this. He may benefit from carotid endarterectomy versus stenting in the very near future. For now, we will continue him on his dual-antiplatelet therapy as well as Crestor. PT eval. Further plans after I discuss with [facility]. [id number]/[facility] #: [id number] ASHLEY
[2017-09-12] MEDS: Atorvastatin* 80 MG TAB PO SCH (17:23)
--- NOTE | 2017-09-12 17:55 | TRS ---
CC: Dr. Abhijit Shetty TRANSFER SUMMARY DATE OF ADMISSION: 09/11/17 DATE OF TRANSFER: 09/12/17 This 82-year-old man presented with left arm weakness and mild left leg weakness. He had been up to g o to the bathroom about 3 a.m. on the day of admission. He went back to sleep. At 6 a.m. he woke up a nd his left arm and left leg were weak. He had 2 strokes involving the same limbs in 2016 in March and April respectively. He says the weakness was not as severe in those 2 cases and he recovered pretty much completely from the first 2 strokes. He was evaluated here with an MRI of the brain, CTA of the head and CT scan of the head. Dr. Odell co nsulted on him. He has plaque in his right carotid artery. He is being sent to [facility] for possible intervention. 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 He was able to lift his l eft shoulder, but not flex his left arm. His left weak is mildly weak, but he is still able to walk. DISCHARGE DIAGNOSES: 1. Right cerebral CVA. 2. Obstructive sleep apnea. 3. BPH. MEDICATIONS UPON TRANSFER: 1. Aspirin 325 mg daily. 2. Atorvastatin 80 mg daily at 5 p.m. 3. Clopidogrel 75 mg daily. 4. Finasteride 5 mg daily. 5. Hydralazine 5 mg slow push every 6 hours p.r.n. systolic greater than 200 or diastolic greater th an 110. 6. Ondansetron 4 mg IV every 6 hours p.r.n. nausea. 7. Terazosin 10 mg daily. [id number]/[facility] #: [id number]
[2017-09-12 20:26] VITALS: BP 129/66
== END 2017-09-12 22:00 | disposition short-term general hospital (02) | DRG 65 ==
LOC: ED 11:29 → MEDTELE 16:01
PROVIDERS: ADMIT Internal Medicine; ATTEND Internal Medicine
PROC: 5A09357 Assistance with Respiratory Ventilation, Less than 24 Consecutive Hours, Continuous Positive Airway Pressure (ICD-10-PCS; principal; 2017-09-11)
DX: I63.411 Cerebral infarction due to embolism of right middle cerebral artery (principal); G81.94 Hemiplegia, unspecified affecting left nondominant side; I69.354 Hemiplegia and hemiparesis following cerebral infarction affecting left non-dominant side; G47.33 Obstructive sleep apnea (adult) (pediatric); N40.0 Benign prostatic hyperplasia without lower urinary tract symptoms; F03.90 Unspecified dementia, unspecified severity, without behavioral disturbance, psychotic disturbance, mood disturbance, and anxiety; F32.9 Major depressive disorder, single episode, unspecified; R29.701 NIHSS score 1; M47.9 Spondylosis, unspecified; H91.90 Unspecified hearing loss, unspecified ear; R00.1 Bradycardia, unspecified; E53.8 Deficiency of other specified B group vitamins; I65.21 Occlusion and stenosis of right carotid artery; Z79.82 Long term (current) use of aspirin; Z79.02 Long term (current) use of antithrombotics/antiplatelets; Z98.41 Cataract extraction status, right eye; Z72.89 Other problems related to lifestyle
CPT/HCPCS: 36415; 70450; 70496; 70498; 70551; 80048; 80053; 80061; 81003; 83036; 83605; 84443; 84484; 85025; 85610; 93005; 94660; 99284; A9270-GY; Q9967

== ENCOUNTER 2017-10-01 17:14 | Emergency (ER) | payer MEDICARE, BC ==
[2017-10-01 17:54] LABS: ABS Basophils 0 10^3/ul (0-0.2); ABS Eosinophils 0.2 10^3/ul (0-0.6); ABS Lymphocytes 0.6 10^3/ul (1.0-4.8); ABS Monocytes 0.4 10^3/ul (0-0.8); ABS Neutrophils 2.7 10^3/ul (1.5-7.7); ABS Nucleated RBC 0 10^3/ul; Eosinophil % 5.5 % (0-6); Hematocrit 41 % (42-52); Hemoglobin 13.9 g/dl (14.0-18.0); Lymphocyte % 15.2 % (25-47); Mean Corpuscular HGB Conc 34 g/dl (31-36); Mean Corpuscular Hemoglobin 31 pg (27-31); Mean Corpuscular Volume 93 fL (80-94); Mean Platelet Volume 7.8 um3 (7.4-10.4); Nucleated Red Blood Cells % 0; Platelet Count 170 10^3/ul (150-450); Red Blood Count 4.44 10^6/ul (4.0-5.4); Red Cell Distribution Width 14 % (10.5-15)
--- OUTSIDE RECORDS SUMMARY | 2017-10-01 18:00 | XMS REPORT ---
:1935 External Reference #:[id number] Author Organization [facility] Address [address] [address] Phone [phone] Care Team Providers Name Role Phone Abhijit Shetty MD Primary Care Physician Unavailable Payers Type Date Identification Numbers Payment Provider Subscriber Medicare Primary Policy Number: [id number] Medicare Patricio Ferris PayID: [id number] [address] [place] [address] [employer] Policy Number: [id number] [facility] Patricio Ferris PayID: [id number] [address] [address] [place] [address] Problems Date Description Provider Status Onset: 06/13/2017 Sick sinus syndrome Ancelmo Rios M.D.,FACP Onset: 02/19/2017 Benign prostatic hypertrophy Abhijit Shetty, Active without outflow obstruction Giuseppe,FACP Onset: 02/19/2017 Pernicious anemia Ancelmo Rios M.D.,FACP Onset: 05/11/2017 Paralytic syndrome of nondominant Abhijit Shetty, Active side as late effect of stroke Giuseppe,FACP Onset: 05/24/2017 Mixed hyperlipidemia Ancelmo Rios M.D.,FACP Onset: 07/30/2017 Obstructive sleep apnea syndrome Zena Stone DNP, RN, Active HEALTHCARE ADMINISTRATIVE ASSISTANT-BC Onset: 07/30/2017 Central sleep apnea syndrome Zena Stone DNP, RN, Active HEALTHCARE ADMINISTRATIVE ASSISTANT-BC Family History Date Family Member(s) Problem(s) Comments Father due to Unknown Causes () Mother due to Unknown Causes () Siblings 1 First Sister Unknown Social History Type Date Description Comments Marital Status Lives With Female 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 Cigarette Use Never Smoked Cigarettes ETOH Use 07/25/2017 consumes 2-3 glasses of wine per week Smoking Patient has never smoked Recreational Drug Use Denies Drug Use Exercise Type/Frequency Exercises regularly Walking every day and weightlifting General Hx Text 2 children Personal Habits Text Do you follow a special diet: No Do you have problems with snoring, daytime fatigue: yes fatigue Allergies, Adverse Reactions, Alerts Date Description Reaction Status Severity Comments 02/19/2017 Flomax active 09/27/2016 NKDA inactive Medications Medication Date Status Form Strength Qnty SIG Indications Ordering Provider Rosuvastatin 05/16 Active Tablets 20mg 60tab take two Qutaybeh Calcium s tablets by S. mouth day 5 at [place] jain M.D. Aspirin Ec 03/26 Active Tablets 325mg 30tab take [address] hansel gerber every Ordering day Provider Cyanocobalamin 02/13 Active Solution 1000mcg/M 10uni 1 milliliters L ts intramuscular Crystal Shetty, [id number] Giuseppe,FACP Terazosin HCL Active Capsules 10mg 1 by mouth Unknown /0000 every day Finasteride Active Tablets 5mg 1 by mouth Unknown /0000 every day Clopidogrel Active Tablets 75mg 30tab 1 by mouth Qutaybeh Bisulfate / s every day Clem Porter M.D. Atorvastatin 03/26 Hx Tablets 80mg 1 by mouth Other /2016 every day Ordering - Provider 05/24 Vitamin B-12 02/12 Hx Liquid 1000mcg/1 12uni inject 1000 5ML ts mcg every week Chapis Jaramillo M.D.,FACP 02/13 Vitamin B12 Hx injection Abhijit / monthly Chapis Jaramillo M.D.,FACP 02/12 Vitamin B12 0000 Hx Tablets 1000mcg 1 by mouth Unknown /0000 ER every day - 03/28 Medications Administered in Office Medication Date Status Form Strength Qnty SIG Indications Ordering Provider Inj, Administered Injection Loli Kim M.D. 0.1 MG Technetium TC Administered Injection Tam Ramey 017 Giuseppe Pascal Tetrofosmin, Per Unit Dose Up To 40 Millicuries Immunizations CPT Code Status Date Vaccine Lot # [id number] Given 03/25/2012 Tdap - Tetanus/Diptheria/Acellular Pertussis Vital Signs Date Vital Result Comment 09/10/2017 Height 69 inches 5'9" Weight 167.00 lb Heart Rate 80 /min BP Systolic Sitting 130 mmHg BP Diastolic Sitting 76 mmHg Respiratory Rate 14 /min O2 % BldC Oximetry 97 % BMI (Body Mass Index) 24.7 kg/m2 07/30/2017 Height 69 inches 5'9" Weight 165.00 lb Heart Rate 100 /min BP Systolic Sitting 84 mmHg Rue reg cuff BP Diastolic Sitting 50 mmHg Rue reg cuff Respiratory Rate 16 /min O2 % BldC Oximetry 97 % On Ra BMI (Body Mass Index) 24.4 kg/m2 07/25/2017 Weight 167.00 lb Heart Rate 114 /min BP Systolic Sitting 128 mmHg BP Diastolic Sitting 58 mmHg Body Temperature 97.1 F O2 % BldC Oximetry 97 % 07/20/2017 Height 66.25 inches 5'6.25" Weight 169.75 lb Heart Rate 80 /min BP Systolic Sitting 126 mmHg LA, reg cuff BP Diastolic Sitting 68 mmHg LA, reg cuff BMI (Body Mass Index) 27.2 kg/m2 Ejection Fraction 60%-65% Toñito 06/22/17 07/16/2017 Height 66.25 inches 5'6.25" Weight 167.00 lb Heart Rate 70 /min BP Systolic Sitting 118 mmHg BP Diastolic Sitting 78 mmHg Respiratory Rate 16 /min O2 % BldC Oximetry 97 % BMI (Body Mass Index) 26.7 kg/m2 Neck Circumference in inches 17 06/14/2017 Height 66.25 inches 5'6.25" Weight 165.00 lb No shoes Heart Rate 78 /min BP Systolic 138 mmHg Rue reg cuff BP Diastolic 68 mmHg Rue reg cuff BP Systolic Sitting 142 mmHg Lue reg cuff BP Diastolic Sitting 70 mmHg Lue reg cuff BP Systolic Standing 132 mmHg Lue reg cuff BP Diastolic Standing 66 mmHg Lue reg cuff Respiratory Rate 17 /min BMI (Body Mass Index) 26.4 kg/m2 Ejection Fraction 60-65% 05/15/2017-echo 06/13/2017 Weight 168.00 lb Heart Rate 67 /min BP Systolic Sitting 110 mmHg BP Diastolic Sitting 60 mmHg Body Temperature 96.5 F O2 % BldC Oximetry 97 % 05/24/2017 Weight 164.00 lb Heart Rate 109 /min BP Systolic Sitting 130 mmHg BP Diastolic Sitting 60 mmHg Body Temperature 97.4 F O2 % BldC Oximetry 92 % 04/25/2017 Height 68 inches 5'8" Weight 166.00 [...] BMI (Body Mass Index) 25.2 kg/m2 Results Test Date Test Result H/L Range Note Laboratory test finding 05/23/2017 PSA Screening 1.759 ng/mL 0-4.000 1 CBC Auto Diff 05/23/2017 White Blood Count 6.3 10^3/uL 3.5-10.8 Red Blood Count 4.39 10^6/uL 4.0-5.4 Hemoglobin 13.7 g/dL Low 14.0-18.0 Hematocrit 41 % Low 42-52 Mean Corpuscular Volume 93 fL 80-94 Mean Corpuscular Hemoglobin 31 pg 27-31 Mean Corpuscular HGB Conc 34 g/dL 31-36 Red Cell Distribution Width 14 % 10.5-15 Platelet Count 190 10^3/uL 150-450 Mean Platelet Volume 8 um3 7.4-10.4 Abs Neutrophils 3.4 10^3/uL 1.5-7.7 Abs Lymphocytes 1.6 10^3/uL 1.0-4.8 Abs Monocytes 0.8 10^3/uL 0-0.8 Abs Eosinophils 0.4 10^3/uL 0-0.6 Abs Basophils 0.1 10^3/uL 0-0.2 Abs Nucleated RBC 0.01 10^3/uL Granulocyte % 53.2 % 38-83 Lymphocyte % 25.6 % 25-47 Monocyte % 13.0 % High 1-9 Eosinophil % 6.8 % High 0-6 Basophil % 1.4 % 0-2 Nucleated Red Blood Cells % 0.1 Laboratory test finding 05/23/2017 Vitamin B12 321 pg/mL 180-914 2 Basic Metabolic Panel 05/23/2017 Chloride 106 mmol/L 101-111 Co2 Carbon Dioxide 27 mmol/L 22-32 Glucose 102 mg/dL High 70-100 Blood Urea Nitrogen 19 mg/dL 6-24 Creatinine 0.91 mg/dL 0.67-1.17 BUN/Creatinine Ratio 20.9 High 8-20 Calcium 9.4 mg/dL 8.6-10.3 Egfr Non- 80.4 >60 Egfr 103.4 >60 3 Sodium 138 mmol/L 133-145 Potassium 4.6 mmol/L 3.5-5.0 Anion Gap 5 mmol/L 2-11 Lipid Profile (Trig/Chol/HDL) 05/23/2017 Triglycerides 112 mg/dL 4 Cholesterol 96 mg/dL 5 HDL Cholesterol 41.9 mg/dL 6 LDL Cholesterol 32 mg/dL 7 Urinalysis Profile 05/12/2017 Urine Color Yellow Urine Appearance Clear Urine Specific [place] 1.021 1.010-1.030 Urine pH 5.0 5-9 Urine Urobilinogen Negative Negative Urine Ketones Negative Negative Urine Protein Negative Negative Urine Leukocytes Negative Negative Urine Blood Negative Negative Urine Nitrite Negative Negative Urine Bilirubin Negative Negative Urine Glucose Negative Negative CBC Auto Diff 05/12/2017 White Blood Count 5.8 10^3/uL 3.5-10.8 Red Blood Count 4.47 10^6/uL 4.0-5.4 Hemoglobin 14.1 g/dL 14.0-18.0 Hematocrit 42 % 42-52 Mean Corpuscular Volume 93 fL 80-94 Mean Corpuscular Hemoglobin 31 pg 27-31 Mean Corpuscular HGB Conc 34 g/dL 31-36 Red Cell Distribution Width 14 % 10.5-15 Platelet Count 176 10^3/uL 150-450 Mean Platelet Volume 8 um3 7.4-10.4 Abs Neutrophils 2.4 10^3/uL 1.5-7.7 Abs Lymphocytes 1.6 10^3/uL 1.0-4.8 Abs Monocytes 0.6 10^3/uL 0-0.8 Abs Eosinophils 1.1 10^3/uL High 0-0.6 Abs Basophils 0.1 10^3/uL 0-0.2 Abs Nucleated RBC 0 10^3/uL Granulocyte % 41.5 % 38-83 Lymphocyte % 27.5 % 25-47 Monocyte % 10.4 % High 1-9 Eosinophil % 19.7 % High 0-6 Basophil % 0.9 % 0-2 Nucleated Red Blood Cells % 0 Inr/Protime 05/12/2017 Inr 0.96 0.77-1.02 8 Laboratory test finding 05/12/2017 Partial Thrombo Time 30.3 seconds 26.0 -36.3 PTT Lactic Acid 1.7 mmol/L 0.5-2.0 9 Comp Metabolic Panel 05/12/2017 Sodium 138 mmol/L 133-145 Potassium 4.2 mmol/L 3.5-5.0 Chloride 106 mmol/L 101-111 Co2 Carbon Dioxide 26 mmol/L 22-32 Anion Gap 6 mmol/L 2-11 Glucose 148 mg/dL High 70-100 Blood Urea Nitrogen 20 mg/dL 6-24 Creatinine 1.17 mg/dL 0.67-1.17 BUN/Creatinine Ratio 17.1 8-20 Calcium 9.1 mg/dL 8.6-10.3 Total Protein 6.5 g/dL 6.4-8.9 Albumin 3.8 g/dL 3.2-5.2 Globulin 2.7 g/dL 2-4 Albumin/Globulin Ratio 1.4 1-3 Total Bilirubin 1.00 mg/dL 0.2-1.0 Alkaline Phosphatase 118 U/L High 34-104 Alt 16 U/L 7-52 Ast 18 U/L 13-39 Egfr Non- 60.1 >60 Egfr 77.3 >60 10 Lipid Profile (Trig/Chol/HDL) 05/12/2017 Triglycerides 185 mg/dL 11 Cholesterol 105 mg/dL 12 HDL Cholesterol 36.8 mg/dL 13 LDL Cholesterol 31 mg/dL 14 Laboratory test finding 05/12/2017 Troponin-I (TnI) 0.01 ng/mL <0.04 Type & Screen 05/12/2017 Patient Blood Type O Positive Antibody Screen NEGATIVE 1 Serum levels of PSA measured using the Genna OpenClov[employer] DXI Hybritech immunoassay should not be interpreted as absolute evidence of the presence or absence of disease. The PSA value should be used in conjunction with other pertinent clinical diagnostic procedures. The values obtained with different assay methods or kits cannot be used interchangeably. 2 Normal Range 180 to 914 Indeterminate Range 145 to 180 Deficient Range <145 3 Because ethnic data is not always readily available, this report includes an eGFR for both -Americans and non- Americans. The National Kidney Disease Education Program (NKDEP) does not endorse the use of the MDRD equation for patients that are not between the ages of 18 and 70, are , have extremes of body size, muscle mass, or nutritional status, or are non- or non-. According to the National Kidney Foundation, irrespective of diagnosis, the stage of the disease is based on the level of kidney function: Stage Description GFR(mL/min/1.73 m(2)) 1 Kidney damage with normal or decreased GFR 90 2 Kidney damage with mild decrease in GFR 60-89 3 Moderate decrease in GFR 30-59 4 Severe decrease in GFR 15-29 5 Kidney failure <15 (or dialysis) 4 Desirable: <150 Borderline High: 150-199 High: 200-499 Very High: >500 5 Desirable: <200 Borderline High: 200-239 High: >239 6 Low: <40 Desirable: 40-60 High: >60 7 Desirable: <100 Near Optimal: 100-129 Borderline High: 130-159 High: 160-189 Very High: >189 8 Please note the change in INR reference range effective 17. 9 [facility] Severe Sepsis and Septic Shock Management Bundle Measure requires all lactic acids initially measuring >2.0 mmol/L be repeated. 10 Because ethnic data is not always readily available, this report includes an eGFR for both -Americans and non- Americans. The National Kidney Disease Education Program (NKDEP) does not endorse the use of the MDRD equation for patients that are not between the ages of 18 and 70, are , have extremes of body size, muscle mass, or nutritional status, or are non- or non-. According to the National Kidney Foundation, irrespective of diagnosis, the stage of the disease is based on the level of kidney function: Stage Description GFR(mL/min/1.73 m(2)) 1 Kidney damage with normal or decreased GFR 90 2 Kidney damage with mild decrease in GFR 60-89 3 Moderate decrease in GFR 30-59 4 Severe decrease in GFR 15-29 5 Kidney failure <15 (or dialysis) 11 Desirable: <150 Borderline High: 150-199 High: 200-499 Very High: >500 12 Desirable: <200 Borderline High: 200-239 High: >239 13 Low: <40 Desirable: 40-60 High: >60 14 Desirable: <100 Near Optimal: 100-129 Borderline High: 130-159 High: 160-189 Very High: >189 Procedures Date CPT Code Description Status 07/18/2017 32650 Polysomnography Sleep Staging 4+ Parameters Completed 06/22/2017 33105 Moderate Sedation Services; Same Phys Intl 15 Mins; PT Completed >=5 Years 06/22/2017 49921 Color Flow Doppler/Interp & Reprt Completed 06/22/2017 37405 Pulse Wave/Continuous-Interp.RPT Completed 06/22/2017 82794 Echocardiography, Transesophageal, Real Time W/Image 2D Completed W/W/O M-M 06/14/2017 73770 EKG Tracing & Interpretation Completed 06/05/2017 29147 Mobile Cardiovascular Telemetry Over 24 HR Up To 30 Completed Days 05/15/2017 75343 ECHO Transthorasic Realtime 2D W Doppler & Color Completed Flow Hosp 05/13/2017 85470 EKG, Interpretation Only Completed 03/23/2017 56179 ECHO Transthorasic Realtime 2D W Doppler & Color Completed Flow Hosp 09/28/2016 52429 Stress Test Completed 09/28/2016 05793 Myocardial Perfusion Imaging Tomographic (Spect) Completed Multiple Studies Encounters Type Date Location Provider CPT E/M Dx Office Visit 09/10/2017 Pul[facility] [place] [address] G47.33 9:00a [facility] G47.37 R53.83 Office Visit 07/30/2017 10:00a [facility] Zena Stone, 15800 G47.33 [facility] LUIS RN, HEALTHCARE ADMINISTRATIVE ASSISTANT-BC G47.37 Office Visit 07/25/2017 9:40a [facility] Internal Abhijit Shetty, 79127 I63.511 Medicine - [place] Sabino Chin,FACP G47.9 I10 Office Visit 07/20/2017 10:40a [facility] Rolly Porter, 12293 I49.5 Giuseppe I63.511 G47.9 I34.0 I71.9 E78.4 Office Visit 07/16/2017 8:30a [facility] [place] [address] R06.83 [facility] R35.1 G47.10 Office Visit 06/14/2017 11:45a [facility] SRadha 19641 I49.5 [facility] Giuseppe Porter R06.02 G47.9 I63.9 Office Visit 06/13/2017 11:20a [facility] Internal Medicine Abhijit Shetty, 96365 I49.5 - [place] Sabino Chin,FACP I69.854 Office Visit 05/24/2017 9:40a [facility] Internal Abhijit Shetty, 72818 I69.854 Medicine - [place] Sabino Chin,FACP R06.02 Office Visit 05/15/2017 1:18p [facility] Maury Perry, 41389 I63.511 Office Visit 05/14/2017 1:17p [facility] Lani Coker, 51670 I63.9 MVandana Office Visit 05/13/2017 1:10p [facility] Lani Coker, 79678 I63.9 M.D. Office Visit 04/25/2017 10:30[place] [address] I69.393 Giuseppe Watt Z79.82 Office Visit 03/26/2017 11:03a [facility],brennen William, N.P. 79747 I63.8 Hospitalists N40.0 Office Visit 03/25/2017 11:03a [facility],brennen William N.P. 92957 I63.8 Hospitalists N40.0 Office Visit 03/24/2017 11:03a [facility],brennen William N.P. 30697 I63.8 Hospitalists N40.0 Office Visit 03/23/2017 11:02a [facility],brennen William, N.P. 29049 I63.8 Hospitalists N40.0 Office Visit 03/23/2017 2:00p [facility] [place] Watt, 34774 I63.9 Giuseppe Office Visit 03/22/2017 11:01a [facility], [place] William N.[place] [address]178 I63.8 Hospitalists N40.0 Office Visit 03/22/2017 1:59p [place] [address] G81.04 Giuseppe Watt Office Visit 02/19/2017 2:00p [facility] Internal Medicine - Abhijit Rojas [address] Giuseppe Shetty,FACP R06.02 D51.9 Plan of Care Future Appointment(s):12/03/2017 9:30 am - Zena Stone DNP, RN, HEALTHCARE ADMINISTRATIVE ASSISTANT-BC at [facility]10/17/2017 1:00 pm - Abhijit Shetty M.D.,FACP at [facility] Internal Medicine - [address]/10/2017 - Jacquie Eubanks MDG47.33 Obstructive sleep apnea (adult) (pediatric)Follow up:6 brirnT59.37 Central sleep apnea in conditions classified uvuaenagbC69.83 Other fatigue
--- OUTSIDE RECORDS SUMMARY | 2017-10-01 18:00 | XMS REPORT ---
:1935 External Reference #:[id number] Author Organization [facility] Address [address] [address] Phone [phone] Care Team Providers Name Role Phone Abhijit Shetty MD Primary Care Physician Unavailable Payers Type Date Identification Numbers Payment Provider Subscriber Medicare Primary Policy Number: [id number] Medicare Patricio Ferris PayID: [id number] [address] [place] [address] [place] Policy Number: [id number] [facility] Patricio Ferris PayID: [id number] [address] [address] [place] [address] Problems Date Description Provider Status Onset: 06/13/2017 [...] apnea syndrome Zena Stone DNP, RN, Active GUM WORKER-BC Onset: 07/30/2017 Central sleep apnea syndrome Zena Stone DNP, RN, Active GUM WORKER-BC Family History Date Family Member(s) Problem(s) Comments Father due to Unknown Causes () Mother due to Unknown Causes () Siblings 1 First Sister Unknown Social History Type Date Description Comments Marital Status Lives With Female Partner 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 Rosuvastatin 05/16 Hx Tablets 20mg 60tab take two Qutaybeh Calcium s tablets by S. mouth day 5 at [place] jain M.D. Atorvastatin 03/26 Hx Tablets 80mg 1 by mouth Other Calcium /2016 every day Ordering - Provider 05/24 Cyanocobalamin 02/13 Hx Solution 1000mcg/M 10uni 1 milliliters L ts intramuscular Chapis Jaramillo [id number] Giuseppe,[facility] 09/14 Vitamin B-12 02/12 Hx Liquid 1000mcg/1 12uni inject 1000 5ML ts mcg every week [facility] M.D[facility] 02/13 Vitamin B12 Hx injection Abhijit / monthly Chapis Jaramillo M.D.,[facility] 02/12 Vitamin B12 Hx Tablets 1000mcg 1 by mouth Unknown /0000 ER every day - 03/28 Medications Administered in Office Medication Date Status Form Strength Qnty SIG Indications Ordering Provider Inj, Administered Injection Tam D. Regadenoson, 017 Giuseppe Pascal 0.1 MG Technetium TC Administered Injection Tam Rojas 99M 017 Giuseppe Pascal Tetrofosmin, Per Unit Dose Up To 40 Millicuries Immunizations CPT Code Status Date Vaccine Lot # [id number] Given 03/25/2012 Tdap - Tetanus/Diptheria/Acellular Pertussis Vital Signs Date Vital Result Comment 09/18/2017 Weight 163.00 lb Heart Rate 97 /min BP Systolic Sitting 136 mmHg BP Diastolic Sitting 72 mmHg Body Temperature 97.8 F O2 % BldC Oximetry 94 % 09/10/2017 Height 69 inches 5'9" Weight 167.00 [...] Test Date Test Result H/L Range Note Urinalysis Profile 09/11/2017 Urine Color Yellow Urine Appearance Clear Urine Specific Harmony 1.031 High 1.010-1.030 Urine pH 7.0 5-9 Urine Urobilinogen Negative Negative Urine Ketones Negative Negative Urine Protein Negative Negative Urine Leukocytes Negative Negative Urine Blood Negative Negative Urine Nitrite Negative Negative Urine Bilirubin Negative Negative Urine Glucose Negative Negative CBC Auto Diff 09/11/2017 White Blood Count 4.0 10^3/uL 3.5-10.8 Red Blood Count 4.17 10^6/uL 4.0-5.4 Hemoglobin 13.1 g/dL Low 14.0-18.0 Hematocrit 38 % Low 42-52 Mean Corpuscular Volume 92 fL 80-94 Mean Corpuscular Hemoglobin 31 pg 27-31 Mean Corpuscular HGB Conc 34 g/dL 31-36 Red Cell Distribution Width 14 % 10.5-15 Platelet Count 147 10^3/uL Low 150-450 Mean Platelet Volume 8.0 um3 7.4-10.4 Abs Neutrophils 2.4 10^3/uL 1.5-7.7 Abs Lymphocytes 1.0 10^3/uL 1.0-4.8 Abs Monocytes 0.5 10^3/uL 0-0.8 Abs Eosinophils 0.1 10^3/uL 0-0.6 Abs Basophils 0 10^3/uL 0-0.2 Abs Nucleated RBC 0 10^3/uL Granulocyte % 60.6 % 38-83 Lymphocyte % 24.0 % Low 25-47 Monocyte % 12.6 % High 0-7 Eosinophil % 1.7 % 0-6 Basophil % 1.1 % 0-2 Nucleated Red Blood Cells % 0 Inr/Protime 09/11/2017 Inr 0.97 0.77-1.02 Laboratory test finding 09/11/2017 Lactic Acid 1.4 mmol/L 0.5-2.0 1 Comp Metabolic Panel 09/11/2017 Sodium 140 mmol/L 139-145 Potassium 4.3 mmol/L 3.5-5.0 Chloride 110 mmol/L 101-111 Co2 Carbon Dioxide 21 mmol/L Low 22-32 Anion Gap 9 mmol/L 2-11 Glucose 109 mg/dL High 70-100 Blood Urea Nitrogen 15 mg/dL 6-24 Creatinine 1.02 mg/dL 0.67-1.17 BUN/Creatinine Ratio 14.7 8-20 Calcium 9.3 mg/dL 8.6-10.3 Total Protein 6.4 g/dL 6.4-8.9 Albumin 3.8 g/dL 3.2-5.2 Globulin 2.6 g/dL 2-4 Albumin/Globulin Ratio 1.5 1-3 Total Bilirubin 0.90 mg/dL 0.2-1.0 Alkaline Phosphatase 88 U/L 34-104 Alt 21 U/L 7-52 Ast 20 U/L 13-39 Egfr Non- 70.3 >60 Egfr 90.4 >60 2 Laboratory test finding 09/11/2017 Troponin-I (TnI) 0.00 ng/mL <0.04 TSH (Thyroid Stim Horm) 2.65 mcIU/mL 0.34-5.60 Lipid Profile (Trig/Chol/HDL) 05/23/2017 Triglycerides 112 mg/dL 3 Cholesterol 96 mg/dL 4 HDL Cholesterol 41.9 mg/dL 5 LDL Cholesterol 32 mg/dL 6 Basic Metabolic Panel 05/23/2017 Chloride 106 mmol/L 101-111 Co2 Carbon Dioxide 27 mmol/L 22-32 Glucose 102 mg/dL High 70-100 Blood Urea Nitrogen 19 mg/dL 6-24 Creatinine 0.91 mg/dL 0.67-1.17 BUN/Creatinine Ratio 20.9 High 8-20 Calcium 9.4 mg/dL 8.6-10.3 Egfr Non- 80.4 >60 Egfr 103.4 >60 7 Sodium 138 mmol/L 133-145 Potassium 4.6 mmol/L 3.5-5.0 Anion Gap 5 mmol/L 2-11 Laboratory test finding 05/23/2017 PSA Screening 1.759 ng/mL 0-4.000 8 CBC Auto Diff 05/23/2017 White Blood Count [...] finding 05/23/2017 Vitamin B12 321 pg/mL 180-914 9 Laboratory test finding 05/12/2017 Partial Thrombo Time 30.3 seconds 26.0 -36.3 PTT Lactic Acid 1.7 mmol/L 0.5-2.0 10 Comp Metabolic Panel 05/12/2017 Sodium 138 mmol/L [...] Egfr Non- 60.1 >60 Egfr 77.3 >60 11 Lipid Profile (Trig/Chol/HDL) 05/12/2017 Triglycerides 185 mg/dL 12 Cholesterol 105 mg/dL 13 HDL Cholesterol 36.8 mg/dL 14 LDL Cholesterol 31 mg/dL 15 Laboratory test finding 05/12/2017 Troponin-I (TnI) 0.01 ng/mL <0.04 Type & Screen 05/12/2017 Patient Blood Type O Positive Antibody Screen NEGATIVE Inr/Protime 05/12/2017 Inr 0.96 0.77-1.02 16 CBC Auto Diff 05/12/2017 White Blood Count [...] 0-2 Nucleated Red Blood Cells % 0 Urinalysis Profile 05/12/2017 Urine Color Yellow Urine Appearance Clear Urine Specific Harmony 1.021 1.010-1.030 Urine pH 5.0 5-9 Urine Urobilinogen Negative Negative Urine Ketones Negative Negative Urine Protein Negative Negative Urine Leukocytes Negative Negative Urine Blood Negative Negative Urine Nitrite Negative Negative Urine Bilirubin Negative Negative Urine Glucose Negative Negative 1 RIS Severe Sepsis and Septic Shock Management Bundle Measure requires all lactic acids initially measuring >2.0 mmol/L be repeated. 2 Because ethnic data is not always readily [...] 15-29 5 Kidney failure <15 (or dialysis) 3 Desirable: <150 Borderline High: 150-199 High: 200-499 Very High: >500 4 Desirable: <200 Borderline High: 200-239 High: >239 5 Low: <40 Desirable: 40-60 High: >60 6 Desirable: <100 Near Optimal: 100-129 Borderline High: 130-159 High: 160-189 Very High: >189 7 Because ethnic data is not always readily [...] 15-29 5 Kidney failure <15 (or dialysis) 8 Serum levels of PSA measured using the [facility] DXI Hybritech immunoassay should not be interpreted as absolute evidence of the presence or absence of disease. The PSA value should be used in conjunction with other pertinent clinical diagnostic procedures. The values obtained with different assay methods or kits cannot be used interchangeably. 9 Normal Range 180 to 914 Indeterminate Range 145 to 180 Deficient Range <145 10 [facility] Severe Sepsis and Septic Shock Management Bundle Measure requires all lactic acids initially measuring >2.0 mmol/L be repeated. 11 Because ethnic data is not always readily [...] 15-29 5 Kidney failure <15 (or dialysis) 12 Desirable: <150 Borderline High: 150-199 High: 200-499 Very High: >500 13 Desirable: <200 Borderline High: 200-239 High: >239 14 Low: <40 Desirable: 40-60 High: >60 15 Desirable: <100 Near Optimal: 100-129 Borderline High: 130-159 High: 160-189 Very High: >189 16 Please note the change in INR reference range effective 17. Procedures Date CPT Code Description Status 07/18/2017 83188 Polysomnography Sleep Staging 4+ Parameters Completed 06/22/2017 10562 Moderate Sedation Services; Same Phys Intl 15 Mins; PT Completed >=5 Years 06/22/2017 72864 Color Flow Doppler/Interp & Reprt Completed 06/22/2017 64908 Pulse Wave/Continuous-Interp.RPT Completed 06/22/2017 35463 Echocardiography, Transesophageal, Real Time W/Image 2D Completed W/W/O M-M 06/14/2017 91028 EKG Tracing & Interpretation Completed 06/05/2017 07248 Mobile Cardiovascular Telemetry Over 24 HR Up To 30 Completed Days 05/15/2017 65545 ECHO Transthorasic Realtime 2D W Doppler & Color Completed Flow Hosp 05/13/2017 33541 EKG, Interpretation Only Completed 03/23/2017 84862 ECHO Transthorasic Realtime 2D W Doppler & Color Completed Flow Hosp 09/28/2016 97637 Stress Test Completed 09/28/2016 48735 Myocardial Perfusion Imaging Tomographic (Spect) Completed Multiple Studies Encounters Type Date Location Provider CPT E/M Dx Office Visit 09/18/2017 [facility] Internal Medicine Abhijit Shetty, 79489 I63.511 1:40p Chapis Liz M.D.,FACP E78.2 Office Visit 09/12/2017 2:04p [facility],brennen Aguilar, 54870 N40.0 Hospitalists Giuseppe I63.9 E53.8 Office Visit 09/11/2017 2:02p [facility],brennen Carlton, 54795 N40.0 Hospitalists N.PRadha I63.9 E53.8 Office Visit 09/10/2017 9:00a [facility] [place] [address] G47.33 Services Of [place] G47.37 R53.83 Office Visit 07/30/2017 10:00a [facility]ology [facility] Sleep Zena Stone 13309 G47.33 Services Of [facility] DNP, RN, GUM WORKER- G47.37 Office Visit 07/25/2017 9:40a [facility] Internal Abhijit Shetty, 52935 I63.511 Medicine - [place] Sabino Chin,FACP G47.9 I10 Office Visit 07/20/2017 10:40a [facility] Stormybdelfin S. [place], 01814 I49.5 M.Crystal I63.511 G47.9 I34.0 I71.9 E78.4 Office Visit 07/16/2017 8:30a Pulmonology [place] [address] R06.83 Services Of [facility] R35.1 G47.10 Office Visit 06/14/2017 11:45a [facility] Of Rolly S. 05480 I49.5 [place] Porter M.D. R06.02 G47.9 I63.9 Office Visit 06/13/2017 11:20a [facility] Internal Medicine Abhijit Shetty, 36142 I49.5 - [place] Sabino Chin,FACP I69.854 Office Visit 05/24/2017 9:40a [facility] Internal Abhijit Shetty, 13393 I69.854 Medicine - [place] Sabino Chin,FACP R06.02 Office Visit 05/15/2017 1:18p [facility] Maury Perry, 01797 I63.511 Office Visit 05/14/2017 1:17p [facility] Lani Coker, 73234 I63.9 M.Crystal Office Visit 05/13/2017 1:10p [facility] Lani Coker, 14857 I63.9 M.DRadha Office Visit 04/25/2017 10:30[place] [address] I69.393 Giuseppe Watt Z79.82 Office Visit 03/26/2017 11:03a [facility],brennen [place], N.P. 51749 I63.8 Hospitalists N40.0 Office Visit 03/25/2017 11:03a [facility],brennen [place], N.P. 43262 I63.8 Hospitalists N40.0 Office Visit 03/24/2017 11:03a [facility],pc Namrata [place], N.P. 36028 I63.8 Hospitalists N40.0 Office Visit 03/23/2017 11:02a [facility],pc Nam[place], N.P. 11272 I63.8 Hospitalists N40.0 Office Visit 03/23/2017 2:00p [facility] Navjot Watt, 75162 I63.9 Giuseppe Office Visit 03/22/2017 11:01a [facility],pc [place], N.P. 03684 I63.8 Hospitalists N40.0 Office Visit 03/22/2017 1:59p [place] [address] G81.04 Giuseppe Watt Office Visit 02/19/2017 2:00p [facility] Internal Medicine - Abhijit Rojas [address]6921 N40.1 [place] Sabino Shetty M.D.,FACP R06.02 D51.9 Plan of Care Future Appointment(s):12/21/2017 3:00 pm - Abhijit Shetty M.D.,FACP at [facility] Internal Medicine - [place] 12/03/2017 9:30 am - Zena Stone DNP, RN, GUM WORKER- at [facility] Of [facility]09/18/2017 - Abhijit Shetty M.D., FACPI63.511 Cereb infrc d/t unsp occls or stenos of right mid cereb artComments: Follow up with physicans in [place] regarding angiogram. Continue to visit PT.E78.2 Mixed hyperlipidemiaComments:Continue statin medication. Call me if all -over muscle pains develop.Follow up:fasting labs after 1 month on new medication
[2017-10-01 18:04] LABS: INR 0.9 (0.77-1.02)
[2017-10-01 18:11] LABS: EGFR Non-African American 77.2 (>60)
[2017-10-01] MEDS ORDERED: Rivaroxaban TAB(*) 15 MG PO ONE ×2 (20:00→20:01)
--- NOTE | 2017-10-01 20:12 | ED ---
Brian Walker Thomas, scribed for Ben Alonzo MD on 10/01/17 at 1942 . 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 He has residual weakness to his left hand and some difficulty walking after these strokes. He is on Plavix and ASA 81. The patient was referred to the ED today after an ultrasound of the left upper extremity obtained today showed a DVT in the left brachial artery. He complains of some swelling to his left hand over the last few days. The patient denies chest pain, bloody stools, black stools, and stomach ulcers. - History Of Current Complaint Chief Complaint: EDExtremityUpper Time Seen by Provider: 10/01/17 18:38 Hx Obtained From: Patient Onset/Duration: Lasting Days, Still Present Timing: Constant Severity Currently: Moderate Aggravating Factor(s): None Alleviating Factor(s): None Associated Signs And Symptoms: Positive: Other - Left hand swelling - Allergies/Home Medications Allergies/Adverse Reactions: Allergies Allergy/AdvReac Type Severity Reaction Status Date / Time No Known Allergies Allergy Verified 10/01/17 17:24 Home Medications: Home Medications Terazosin CAP* [Hytrin CAP*] 10 mg PO DAILY 10/01/17 [History Confirmed 10/01/17 ] PMH/Surg Hx/FS Hx/Imm Hx Endocrine/Hematology History: Reports: Hx Anemia - VIT B 12 Denies: Hx Diabetes Cardiovascular History: Denies: Hx Cardiac Arrest, Hx Cardiomegaly, Hx Hypertension, Hx Pacemaker/ICD Respiratory History: Reports: Hx Sleep Apnea, Other Respiratory Problems/ Disorders - Patient states he becomes SOB on exertion for the last 2 years. Denies: Hx Asthma, Hx Chronic Bronchitis, Hx Chronic Obstructive Pulmonary Disease (COPD), Hx Lung Cancer, Hx Pulmonary Embolism GI History: Denies: Other GI Disorders History: Reports: Hx Benign Prostatic Hyperplasia Denies: Hx Renal Disease Musculoskeletal History: Reports: Hx Arthritis - spine Denies: Hx Rheumatoid Arthritis, Hx Back Problems, Hx Osteoporosis, Other Musculoskeletal History Sensory History: Reports: Hx Cataracts - R eye, with removal, Hx Contacts or Glasses, Hx Hearing Aid - NOT IN, Hx Hearing Problem Denies: Hx Eye Injury Opthamlomology History: Reports: Hx Cataracts - R eye, with removal, Hx Contacts or Glasses Denies: Hx Eye Injury Neurological History: Reports: Hx CVA, Hx Dementia Denies: Hx Developmental Delay, Hx Headaches, Other Neuro Impairments/ Disorders Psychiatric History: Reports: Hx Depression - NO MEDS Denies: Hx Panic Disorder - Surgical History Surgery Procedure, Year, and Place: HERNIA X2 (1984, 1999);. DENTAL SURGERY;. EYE REPAIR AFTER STRUCK IN EYE WITH NAIL - PRIOR CLEARENCE IN PACS Hx Anesthesia Reactions: No Infectious Disease History: No Infectious Disease History: Denies: Hx Clostridium Difficile, Hx Hepatitis, Hx of Known/Suspected MRSA, Hx Shingles, Hx Tuberculosis, History Other Infectious Disease, Traveled Outside the [place] in Last 30 Days - Family History Known Family History: Positive: Other - Pt denies family history when asked - Social History Alcohol Use: Occasionally Alcohol Amount: 3-4 drinks a week Hx Substance Use: No Substance Use Type: Reports: None Smoking Status (MU): Never Smoked Tobacco Review of Systems Negative: Chest Pain Negative: Shortness Of Breath Negative: Other - bloody stools, black stools, stomach ulcers Positive: Other - Swelling to left hand All Other Systems Reviewed And Are Negative: Yes Physical Exam - Summary Physical Exam Summary: General: well-appearing, no pain distress Skin: warm, color reflects adequate perfusion, dry Head: normal Eyes: EOMI, YOUSUF ENT: normal Neck: supple, nontender Respiratory: CTA, breath sounds present Cardiovascular: RRR Abdomen: soft, nontender Bowel: present Musculoskeletal: strength/ROM intact. He has swelling to his hands. Neurological: A&O x3. He has weakness in the left wrist and three fingers Psychological: affect/mood appropriate Triage Information Reviewed: Yes Vital Signs On Initial Exam: Initial Vitals Temp Pulse Resp BP Pulse Ox 97.8 F 87 20 144/77 96 10/01/17 17:24 10/01/17 17:24 10/01/17 17:24 10/01/17 17:24 10/01/17 17:24 Vital Signs Reviewed: Yes Diagnostics - Vital Signs Vital Signs Temp Pulse Resp BP Pulse Ox 10/01/17 17:24 97.8 F 87 20 144/77 96 - Laboratory Lab Results: Lab Results 10/01/17 10/01/17 10/01/17 Range/Units 17:48 17:48 17:48 WBC 4.0 (3.5-10.8) 10^3/ul RBC 4.44 (4.0-5.4) 10^6/ul Hgb 13.9 L (14.0-18.0) g/dl Hct 41 L (42-52) % MCV 93 (80-94) fL MCH 31 (27-31) pg MCHC 34 (31-36) g/dl RDW 14 (10.5-15) % Plt Count 170 (150-450) 10^3/ul MPV 7.8 (7.4-10.4) um3 Neut % (Auto) 68.1 (38-83) % Lymph % (Auto) 15.2 L (25-47) % Franklin % (Auto) 10.0 H (0-7) % Eos % (Auto) 5.5 (0-6) % Baso % (Auto) 1.2 (0-2) % Absolute Neuts (auto) 2.7 (1.5-7.7) 10^3/ul Absolute Lymphs (auto) 0.6 L (1.0-4.8) 10^3/ul Absolute Monos (auto) 0.4 (0-0.8) 10^3/ul Absolute Eos (auto) 0.2 (0-0.6) 10^3/ul Absolute Basos (auto) 0 (0-0.2) 10^3/ul Absolute Nucleated RBC 0 10^3/ul Nucleated RBC % 0 INR (Anticoag Therapy) 0.90 (0.77-1.02) APTT 29.9 (26.0-36.3) seconds Sodium 141 (139-145) mmol/L Potassium 4.1 (3.5-5.0) mmol/L Chloride 107 (101-111) mmol/L Carbon Dioxide 25 (22-32) mmol/L Anion Gap 9 (2-11) mmol/L BUN 18 (6-24) mg/dL Creatinine 0.94 (0.67-1.17) mg/dL Est GFR ( Amer) 99.3 (>60) Est GFR (Non-Af Amer) 77.2 (>60) BUN/Creatinine Ratio 19.1 (8-20) Glucose 125 H (70-100) mg/dL Calcium 9.1 (8.6-10.3) mg/dL Total Bilirubin 1.00 (0.2-1.0) mg/dL AST 19 (13-39) U/L ALT 17 (7-52) U/L Alkaline Phosphatase 104 (34-104) U/L Total Protein 6.8 (6.4-8.9) g/dL Albumin 4.0 (3.2-5.2) g/dL Globulin 2.8 (2-4) g/dL Albumin/Globulin Ratio 1.4 (1-3) Result Diagrams: 10/01/17 17:48 10/01/17 17:48 Lab Statement: Any lab studies that have been ordered have been reviewed, and results considered in the medical decision making process. Complex Multi-Symp Course/Dx Course Of Treatment: NO CHEST PAIN, NO SOB, NOT HYPOXIC. DISCUSSED WITH DR PERRY, NEUROLOGY. THE PLAN IS TO STOP THE PLAVIX, CONTINUE THE ASA AND START XARELTO. DR PERRY WILL DISCUSS THE CASE WITH DR KEY AND WILL CONTACT [facility] [facility]. F/U PMD AND NEUROLOGY; RETURN IF WORSE. - Diagnoses Provider Diagnoses: Deep vein thrombosis (DVT) of left upper extremity - Physician Notifications Discussed Care Of Patient With: Maury Perry Time Discussed With Above Provider: 19:41 Instructed by Provider To: Other - Dr. Perry, neurology, recommends starting the patient on Xarelto, keeping him on ASA, and stopping him on Plavix. Discharge - Sign-Out/Discharge Documenting (check all that apply): Discharge/Admit/Transfer - Discharge Plan Condition: Stable Disposition: HOME Prescriptions: Rivaroxaban TAB(*) [Xarelto 15 mg(*)] 15 mg PO BID #40 tab Patient Education Materials: Deep Vein Thrombosis (ED) Referrals: Shahana Key MD [Medical Doctor] - Ahbijit Shetty MD [Primary Care Provider] - Additional Instructions: FOLLOW UP WITH YOUR DOCTOR. STOP THE PLAVIX (CLOPIDIGREL). START THE XARELTO 15MG TWICE A DAY. CALL DR SHETTY TOMORROW FOR FOLLOW UP. DR PERRY, THE NEUROLOGIST PLAYBACK OPERATOR, WILL CONTACT DR KEY. RETURN TO THE EMERGENCY DEPARTMENT FOR ANY WORSENING OF YOUR CONDITION; CHEST PAIN, SHORTNESS OF BREATH, YOU FEEL ILL OR QUESTIONS OR CONCERNS. - Billing Disposition and Condition Condition: STABLE Disposition: HOME The documentation as recorded by the scribe, Brian,Joseph accurately reflects the service I personally performed and the decisions made by me, Ben Alonzo MD.
[2017-10-01 21:07] VITALS: BP 148/86
== END 2017-10-01 21:12 | disposition home or self-care (01) ==
LOC: ED 17:14
DX: I82.622 Acute embolism and thrombosis of deep veins of left upper extremity (principal); I69.354 Hemiplegia and hemiparesis following cerebral infarction affecting left non-dominant side; I69.398 Other sequelae of cerebral infarction; R26.2 Difficulty in walking, not elsewhere classified; Z79.02 Long term (current) use of antithrombotics/antiplatelets; Z79.82 Long term (current) use of aspirin; M25.512 Pain in left shoulder
CPT/HCPCS: 36415; 80053; 85025; 85610; 85730; 99283; J3301

== ENCOUNTER 2021-04-15 13:05 | Observation (INO) ==
[2021-04-15] MEDS ORDERED: Lactated Ringers 1000 ml BAG 1,000 ML IV ONE (13:34)
[2021-04-15] MEDS ORDERED: Morphine 4 MG/ML VIAL (1 ml) IV ONE (13:35)
[2021-04-15] MEDS ORDERED: Ondansetron 4 mg VIAL 2 MG/ML 2 ml VIAL IV ONE (13:35)
[2021-04-15 14:56] LABS: ABS Basophils 0.1 10^3/ul (0-0.2); ABS Eosinophils 0.2 10^3/ul (0-0.6); ABS Lymphocytes 0.8 10^3/ul (1.0-4.8); ABS Monocytes 0.6 10^3/ul (0-0.8); ABS Neutrophils 4.4 10^3/ul (1.5-7.7); Eosinophil % 2.7 %; Hematocrit 34 % (42-52); Hemoglobin 11.5 g/dL (14.0-18.0); Lymphocyte % 13.9 %; Mean Corpuscular HGB Conc 34 g/dL (31-36); Mean Corpuscular Hemoglobin 32 pg (27-31); Mean Corpuscular Volume 95 fL (80-94); Mean Platelet Volume 8.1 fL (7.4-10.4); Nucleated Red Blood Cells % 0.1; Platelet Count 227 10^3/uL (150-450); Red Blood Count 3.58 10^6 /uL (4.18-5.48); Red Cell Distribution Width 14 % (10-15); White Blood Count 6.1 10^3/uL (3.5-10.8)
[2021-04-15] MEDS ORDERED: Ondansetron 4 mg VIAL 2 MG/ML 2 ml VIAL ONE (15:12)
[2021-04-15] MEDS ORDERED: Dexamethasone IV 4 MG/ML VIAL 1 ml VIAL ONE (15:12)
[2021-04-15] MEDS ORDERED: Propofol 10 MG/ML 20 ML BTL ONE (15:12)
[2021-04-15] MEDS ORDERED: fentaNYL 100 mcg/2 ml 50 MCG/ML VIAL ONE (15:12)
[2021-04-15] MEDS ORDERED: Midazolam 2 mg/2 ml VIAL 1 mg/ml 2 ml VIAL (2 mg) ONE (15:12)
[2021-04-15] MEDS ORDERED: Lidocaine 2% PF 5 ML VIAL ONE (15:12)
[2021-04-15 15:16] LABS: C Reactive Protein 130.54 mg/L (<8.01); Calcium 8.6 mg/dL (8.6-10.3); Potassium 4.1 mmol/L (3.5-5.0); eGFR CKD-EPI 57.1 (>60)
[2021-04-15 15:20] LABS: Rapid COVID-19 Molecular Undetected (Undetected)
[2021-04-15] MEDS ORDERED: Iohexol 180 (CONTRAST) 10 ML SDV IV ONE (15:25)
[2021-04-15] MEDS ORDERED: cefTRIAXone 2 GM ADDV.VIAL ONE (15:47)
[2021-04-15] MEDS ORDERED: Ondansetron 4 mg VIAL 2 MG/ML 2 ml VIAL IV PRN ×3 (16:20→18:35)
[2021-04-15] MEDS ORDERED: Naloxone 0.4 mg VIAL 0.4 mg/ml 1 ml VIAL IV PRN ×2 (16:23→18:37)
[2021-04-15] MEDS ORDERED: fentaNYL 100 mcg/2 ml 50 MCG/ML VIAL IV PRN ×2 (16:23→18:35)
[2021-04-16] MEDS: Lactated Ringers 1000 ml BAG 1,000 ML IV SCH ×4 (01:35→23:49)
[2021-04-16 05:44] LABS: ABS Lymphocytes 0.6 10^3/ul (1.0-4.8); ABS Monocytes 0.2 10^3/ul (0-0.8); ABS Neutrophils 4.4 10^3/ul (1.5-7.7); Hematocrit 31 % (42-52); Hemoglobin 10.5 g/dL (14.0-18.0); Lymphocyte % 10.6 %; Mean Corpuscular HGB Conc 34 g/dL (31-36); Mean Corpuscular Hemoglobin 32 pg (27-31); Mean Corpuscular Volume 95 fL (80-94); Mean Platelet Volume 8.6 fL (7.4-10.4); Platelet Count 208 10^3/uL (150-450); Red Blood Count 3.23 10^6 /uL (4.18-5.48); Red Cell Distribution Width 13 % (10-15); White Blood Count 5.2 10^3/uL (3.5-10.8)
[2021-04-16 05:56] LABS: C Reactive Protein 112.65 mg/L (<8.01); Calcium 8.3 mg/dL (8.6-10.3); Potassium 4.2 mmol/L (3.5-5.0); eGFR CKD-EPI 69.6 (>60)
[2021-04-16] MEDS ORDERED: CYANOCOBALAMIN 1000 MCG PO SCH (09:00)
[2021-04-17] MEDS: Lactated Ringers 1000 ml BAG 1,000 ML IV SCH (06:38)
[2021-04-17 09:38] LABS: Hematocrit 30 % (42-52); Hemoglobin 10.3 g/dL (14.0-18.0); Mean Corpuscular HGB Conc 34 g/dL (31-36); Mean Corpuscular Hemoglobin 33 pg (27-31); Mean Corpuscular Volume 96 fL (80-94); Mean Platelet Volume 8.1 fL (7.4-10.4); Platelet Count 242 10^3/uL (150-450); Red Blood Count 3.14 10^6 /uL (4.18-5.48); Red Cell Distribution Width 14 % (10-15); White Blood Count 6.1 10^3/uL (3.5-10.8)
[2021-04-17 12:02] VITALS: BP 159/74
[2021-04-17 12:49] LABS: Urine Appearance Cloudy; Urine Bilirubin Negative (Negative); Urine Blood 3+ (Negative); Urine Glucose Negative (Negative); Urine Ketones Negative (Negative); Urine Nitrite Negative (Negative); Urine Protein 2+(100 mg/dL) (Negative); Urine Specific Gravity 1.011 (1.002-1.030); Urine Urobilinogen Negative (Negative)
[2021-04-17 12:51] LABS: Urine Amorphous Crystals Present (Absent); Urine Bacteria 1+ (Absent); Urine Red Blood Cell 3+(>10/hpf) (Absent); Urine Squamous Epithelial Cell Present (Absent); Urine White Blood Cell 1+(6-10/hpf) (Absent)
[2021-04-17 13:01] LABS: Urine Color Red
== END 2021-04-17 14:30 | disposition home or self-care (01) ==
LOC: SSU 13:05 → ED 13:05 → SUATTDRO 18:34 → SSU 18:50
PROVIDERS: ADMIT Internal Medicine; ATTEND Hospitalist